=== PATIENT | female | born 1960 | race Caucasian/White ===

== ENCOUNTER → 2017-01-30 | Outpatient (CLI) | payer OTHER ==
[~2017-01-30] MED LIST: ASPI81TA85 PO; BILB150C PO; BIOT800T2 PO; BIOTIN; CRANBERRY FRUIT PO; FISH100035 PO; FLEC10TA PO; GLIP-162 PO; INSULANT SC; LISI-542 PO; MAGN250T2 PO; METO25TA2 PO; PLAV75TA38 PO; POTA595T8 PO; PROP20TA PO; REPA2TA PO; SIMV20TA2 PO; VIT D 2000 PO; VITA-122 PO; VITA10002 PO; [UNRECOGNIZED DRUG - OTHER] PO
[2017-01-30 20:33] LABS: ANION GAP 7 MEQ/L (8-16); BLOOD UREA NITROGEN 14 MG/DL (7-18); CALCIUM LEVEL 9.6 MG/DL (8.5-10.1); CARBON DIOXIDE LEVEL 29 MEQ/L (21-32); CHLORIDE LEVEL 100 MEQ/L (98-107); CHOLESTEROL LEVEL 193 MG/DL (<200); CREATININE FOR GFR 0.67 MG/DL (0.55-1.02); GLOMERULAR FILTRATION RATE > 60.0 (>51); GLUCOSE, FASTING 363 MG/DL (70-105); POTASSIUM SERUM 4.1 MEQ/L (3.5-5.1); SODIUM LEVEL 136 MEQ/L (136-145); TRIGLYCERIDES LEVEL 256 MG/DL (<150)
== END ==
LOC: M ADAMS 16:57
PROVIDERS: ATTEND Internal Medicine Cardiovascular Disease
DX: E78.5 Hyperlipidemia, unspecified (principal); I10 Essential (primary) hypertension; E11.9 Type 2 diabetes mellitus without complications

== ENCOUNTER 2018-06-28 07:56 | Emergency (ER) | payer OTHER ==
[2018-06-28 09:37] LABS: BASO # 0.1 10^3/uL (0.0-0.2); BASO % 0.4 % (0.0-1.0); EOS # 0.1 10^3/uL (0.0-0.50); EOS % 0.8 % (0.0-3.0); HEMATOCRIT 38.4 % (36.0-47.0); HEMOGLOBIN 13.1 g/dl (12.0-15.5); IMMATURE GRANULOCYTE % 0.5 % (0-3.0); LYMPH # 2.7 10^3/uL (1.5-4.5); LYMPH % 20.4 % (24.0-44.0); MEAN CORPUSCULAR HEMOGLOBIN 30.7 pg (27.0-33.0); MEAN CORPUSCULAR HGB CONC 34.1 g/dl (32.0-36.5); MEAN CORPUSCULAR VOLUME 89.9 fl (80.0-96.0); MONO # 0.8 10^3/uL (0.0-0.8); NEUTROPHILS # 9.4 10^3/uL (1.8-7.7); NEUTROPHILS % 71.9 % (36.0-66.0); PLATELET COUNT, AUTOMATED 329 10^3/uL (150-450); RED BLOOD COUNT 4.27 10^6/uL (4.00-5.40); RED CELL DISTRIBUTION WIDTH 12.6 % (11.5-14.5)
[2018-06-28 10:06] LABS: ANION GAP 7 MEQ/L (8-16); BLOOD UREA NITROGEN 13 MG/DL (7-18); CALCIUM LEVEL 9.5 MG/DL (8.8-10.2); CARBON DIOXIDE LEVEL 25 MEQ/L (21-32); CHLORIDE LEVEL 107 MEQ/L (98-107); CREATININE FOR GFR 0.57 MG/DL (0.55-1.30); GLOMERULAR FILTRATION RATE > 60.0 (>45); GLUCOSE, FASTING 214 MG/DL (70-100); POTASSIUM SERUM 4.7 MEQ/L (3.5-5.1); SODIUM LEVEL 139 MEQ/L (136-145)
[2018-06-28] MEDS ORDERED: ISOVUE-370 76% 100ML VIAL (Q9967) As Ordered (10:13)
[2018-06-28 10:41] LABS: BEDSIDE GLUCOSE 209 MG/DL (80-115)
== END 2018-06-28 13:30 | disposition home or self-care (01) ==
LOC: M ED 07:56
DX: S50.811A Abrasion of right forearm, initial encounter (principal); R07.81 Pleurodynia; R11.10 Vomiting, unspecified; V43.52XA Car driver injured in collision with other type car in traffic accident, initial encounter; Y92.410 Unspecified street and highway as the place of occurrence of the external cause; E11.9 Type 2 diabetes mellitus without complications; E78.9 Disorder of lipoprotein metabolism, unspecified; Z79.899 Other long term (current) drug therapy; Z79.4 Long term (current) use of insulin
CPT/HCPCS: Q9967

== ENCOUNTER → 2019-04-10 | Outpatient (REF) | payer OTHER ==
[~2019-04-10] MED LIST changes: -FISH100035 PO; +FISH7.5C PO; -MAGN250T2 PO; +MAGN250T7 PO; +NOVOINJ3 SUBQ; +PLAV1TAB2 PO; -PLAV75TA38 PO; +PRAV20TA2 PO; -REPA2TA PO; +REPA2TAB5 PO
[2019-04-10 14:36] LABS: CHOLESTEROL RISK RATIO 3.777 (<5)
[2019-04-10 15:46] LABS: CREATININE, URINE 90.6 MG/DL; MALB URINE SIEMENS 10.4 MG/L; MAU/CREAT RATIO 11.4 MCG/MG (0.0-30.0)
== END ==
LOC: M LABDRAW1 14:05
PROVIDERS: ATTEND Nurse Practitioner Family
DX: E78.2 Mixed hyperlipidemia (principal); E11.65 Type 2 diabetes mellitus with hyperglycemia

== ENCOUNTER 2019-08-29 11:13 | Inpatient (IN) | payer OTHER ==
[~2019-08-29] VITALS: Ht 157.5 cm; Wt 90.0 kg
[~2019-08-29 11:13] MED LIST changes: +CYAN100049 PO; +NOVOINJ3 SC; -NOVOINJ3 SUBQ; -VITA10002 PO
--- NOTE | 2019-08-29 11:54 | REP ---
CT brain without contrast: History: Trauma. Comparison CT study is from June 28, 2018. CT findings: Digital preliminary lateral account receivable clerk view is unremarkable. The bony calvarium is intact on axial CT images. No skull fracture is appreciated. There is a right parietal scalp hematoma. Visualized paranasal sinuses are clear. No intraorbital abnormality is seen. On soft tissue window settings, turcios-white differentiation pattern is seen to be intact. There is no evidence of intracranial hemorrhage. No mass, extra-axial fluid collection, midline shift or contusion is seen. Impression: Right parietal scalp hematoma. No skull fracture or intracranial injury. Electronically Signed by Roni Painter MD 08/29/2019 01:43 P
--- NOTE | 2019-08-29 12:09 | REP ---
REASON: Chest pain. COMPARISON: Multiple, the latest 02/06/2016. The technique utilized in obtaining the radiograph has magnified the cardiac silhouette and accentuated the interstitial markings. There is cardiomegaly accentuated by technique status quo. Dual chamber biopolar pacemaker device with AICD status quo. No significant change in appearance of the lung vital. No acute patchy parenchymal opacities or pleural effusions have developed. The osseous structures are stable and intact. IMPRESSION: No evidence of acute cardiopulmonary disease. Findings as described above. Electronically Signed by Ranjan Purvis DO 08/29/2019 02:03 P
[2019-08-29 12:53] LABS: BASO # 0.1 10^3/uL (0.0-0.2); BASO % 0.7 % (0.0-1.0); EOS # 0.2 10^3/uL (0.0-0.5); EOS % 2.1 % (0.0-3.0); HEMATOCRIT 38.7 % (36.0-47.0); HEMOGLOBIN 13.2 g/dl (12.0-15.5); LYMPH # 2.8 10^3/uL (1.5-5.0); LYMPH % 29.1 % (24.0-44.0); MEAN CORPUSCULAR HEMOGLOBIN 31.8 pg (27.0-33.0); MEAN CORPUSCULAR HGB CONC 34.1 g/dl (32.0-36.5); MEAN CORPUSCULAR VOLUME 93.3 fl (80.0-96.0); MONO # 0.8 10^3/uL (0.0-0.8); NEUTROPHILS # 5.6 10^3/uL (1.5-8.5); NEUTROPHILS % 59.4 % (36.0-66.0); PLATELET COUNT, AUTOMATED 306 10^3/uL (150-450); RED BLOOD COUNT 4.15 10^6/uL (4.00-5.40); WHITE BLOOD COUNT 9.5 10^3/uL (4.0-10.0)
[2019-08-29 13:09] LABS: INR 1.02; PROTHROMBIN TIME 13.1 SECONDS (11.8-14.0)
[2019-08-29 13:24] LABS: ALBUMIN 3.5 GM/DL (3.2-5.2); ALT/SGPT 30 U/L (12-78); BILIRUBIN,DIRECT 0.1 MG/DL (0.0-0.2); BILIRUBIN,TOTAL 0.4 MG/DL (0.2-1.0); BLOOD UREA NITROGEN 11 MG/DL (7-18); CALCIUM LEVEL 9.7 MG/DL (8.8-10.2); CARBON DIOXIDE LEVEL 26 MEQ/L (21-32); CHLORIDE LEVEL 107 MEQ/L (98-107); CK-MB VALUE MASS 1.7 NG/ML (<3.6); CPK CREATINE PHOSPHOKINASE 90 U/L (26-192); CREATININE FOR GFR 0.58 MG/DL (0.55-1.30); GLOMERULAR FILTRATION RATE > 60.0 (>45); GLUCOSE, FASTING 129 MG/DL (70-100); LIPASE 108 U/L (73-393); MB/CK RELATIVE INDEX 1.89 (< OR =4); NT-PRO BNP 136 PG/ML (<125); POTASSIUM SERUM 4.3 MEQ/L (3.5-5.1); SODIUM LEVEL 140 MEQ/L (136-145); TOTAL PROTEIN 7.8 GM/DL (6.4-8.2); TROPONIN I 0.13 NG/ML (< 0.10)
[2019-08-29] MEDS ORDERED: CYAN100050 PO (13:34)
[2019-08-29] MEDS ORDERED: PROP20TA PO (13:34)
[2019-08-29] MEDS ORDERED: HM P99TA PO (13:34)
[2019-08-29] MEDS ORDERED: CRAN400C PO (13:34)
[2019-08-29] MEDS ORDERED: MAGN400T PO (13:34)
[2019-08-29] MEDS ORDERED: CHOL50002 PO (13:34)
[2019-08-29] MEDS ORDERED: ACET-908 PO (13:35)
--- NOTE | 2019-08-29 17:38 | HPE ---
DATE OF ADMISSION: 08/29/2019 SHEET METAL OPERATOR: Dr. Lira PRIMARY CARE PROVIDER: Dr. Tatiana Leon ATTENDING PHYSICIAN: Hospitalist group. CHIEF COMPLAINT: Syncope with a slightly elevated troponin. HISTORY: Rosmery Bautista is a 59-year-old followed by [facility]. She had a syncopal episode today at [employer] in [place]. She was ready to order her lunch at the counter, when she found herself on the floor. She said she felt vaguely unwell for just a moment before. She does not recall having her implantable cardioverter defibrillator (ICD) discharge. Her says she had been very tired recently, and the patient thinks that "her stomach has be off" for the last day, but there have been no respiratory illnesses, fevers, nausea, vomiting, or diarrhea. PAST MEDICAL HISTORY: 1. Ventricular tachycardia. She has an ICD. 2. History of hypertensive heart disease. 3. Hyperlipidemia. 4. Chronic kidney disease. 5. Coronary artery disease with history of myocardial infarction. 6. Type 2 diabetes. SOCIAL HISTORY: Does not smoke or drink any alcohol. She is . REVIEW OF SYSTEMS: As above. No epistaxis, rectal bleeding, urinary bleeding, headache, history of seizure disorder. MEDICATIONS: - Lantus insulins 60 units daily - sliding scale insulin based upon blood sugars - magnesium oxide 400 mg at bedtime - pravastatin 20 mg at bedtime - propranolol 20 mg twice a day - vitamin D 5000 units at bedtime - B12 at 1000 mcg daily - potassium gluconate 99 mg daily ALLERGIES: None known, but per Dr. Ortiz in the emergency room the patient has an unspecified problem taking AMIODARONE in the past. PHYSICAL EXAMINATION: Alert, oriented. No distress. VITAL SIGNS: Per flow sheet. Pupils equal, round, and reactive to light. Tympanic membranes (TMs) and oropharynx benign. NECK: No masses. LUNGS: Clear. HEART: Regular rate and rhythm. No murmur. ABDOMEN: Soft, nontender. No masses. No peripheral edema. Normal strength int he arms and legs. NEUROLOGIC: Nonfocal. LABORATORY DATA: CBC, BMP unremarkable. Magnesium 2.0, potassium 4.4. Troponin 0.13. A CT scan of the head showed a right parietal scalp hematoma. Chest x-ray showed no active disease. IMPRESSION: Syncope. 1. The patient will be admitted to a telemetry bed. Dr. Lira would like her observed on telemetry for 24 hours. Going to interrogate the ICD later today. 2. Slightly elevated troponin. Repeat troponin has been ordered. 3. Diabetes. Sliding-scale insulin for the next day. 4. Hypertension. Continue her current dose of propranolol. 5. Hyperlipidemia. Continue pravastatin.
[2019-08-29 20:20] VITALS: BP 150/72
[2019-08-29] MEDS: PROPRANOLOL 20 MG TAB PO SCH (22:04)
[2019-08-29] MEDS: MAGNESIUM OXIDE 400 MG TAB (MAG-OX) PO SCH (22:04)
[2019-08-29] MEDS: PRAVASTATIN 20 MG TAB PO SCH (22:05)
[2019-08-29] MEDS: ACETAMINOPHEN 325 MG TAB PO PRN (22:09)
[2019-08-29 22:47] LABS: CK-MB VALUE MASS 1.4 NG/ML (<3.6); MB/CK RELATIVE INDEX 1.77 (< OR =4); TROPONIN I 0.32 NG/ML (< 0.10)
[2019-08-30] VITALS: BP 118/58
[2019-08-30 04:00] VITALS: BP 122/66
[2019-08-30 04:13] LABS: CK-MB VALUE MASS 1.4 NG/ML (<3.6); MB/CK RELATIVE INDEX 0.82 (< OR =4); TROPONIN I 0.29 NG/ML (< 0.10)
[2019-08-30] MEDS ORDERED: GLUCAGON FOR INJ 1 MG VIAL (J1610) SC PRN (05:00)
[2019-08-30] MEDS ORDERED: DEXTROSE 50% 50 ML SYRINGE IV PRN (05:00)
[2019-08-30] MEDS ORDERED: GLUCOSE 4 GM CHEW TABLET PO PRN (05:00)
[2019-08-30 06:34] LABS: HEMATOCRIT 38.7 % (36.0-47.0); HEMOGLOBIN 12.9 g/dl (12.0-15.5); MEAN CORPUSCULAR HEMOGLOBIN 30.8 pg (27.0-33.0); MEAN CORPUSCULAR HGB CONC 33.3 g/dl (32.0-36.5); MEAN CORPUSCULAR VOLUME 92.4 fl (80.0-96.0); PLATELET COUNT, AUTOMATED 315 10^3/uL (150-450); RED BLOOD COUNT 4.19 10^6/uL (4.00-5.40); WHITE BLOOD COUNT 8.8 10^3/uL (4.0-10.0)
--- NOTE | 2019-08-30 06:49 | CR ---
DATE OF CONSULTATION: 08/29/2019 INDICATIONS: Syncope. REFERRING PHYSICIAN: Dr. Miller HISTORY OF PRESENT ILLNESS: Mrs. Bautista is seen in the emergency room after she suffered a syncopal event at work. She tells me that she was standing and the next thing she remembers that somebody was talking to her as she is lying on the floor. She did not have any warning symptoms. Besides feeling a little more tired than usual in the last few weeks, she has not been sick lately and there have not been any unusual events. On arrival of ambulance her vital signs were very stable. She was alert and the EKG tracings from ambulance do not indicate any arrhythmias. The patient is known to me. She does have a history of idiopathic ventricular tachycardia that was initially diagnosed in 2006. She has been seen by Dr. Medina in [facility] for electrophysiology. She initially underwent a cardiac catheterization that was normal and had a defibrillator inserted in April 2007. She was initially treated with sotalol and flecainide, neither one of which was successful. 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 She had two ablations by Dr. Medina that ultimately turned out not to be overly successful, but the second one in 2016 was complicated by pericardial tamponade. Since her initial presentation, she has had a total four episodes of ventricular tachycardia (VT)/ventricular fibrillation that led to implantable cardioverter defibrillator (ICD) discharges. PAST MEDICAL HISTORY: 1. Idiopathic ventricular tachycardia as above. The last cardiac catheterization was in 2006 and revealed normal coronary anatomy. Last EP study was in December 2015 that led to pericardial tamponade. Last nuclear stress was in January 2016 and revealed left ventricular ejection fraction (LVEF) 70% and normal perfusion. 2. Type 2 diabetes. 3. Dyslipidemia. 4. Obesity. 5. 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 It eventually subsided spontaneously after the medication was discontinued. SURGICAL HISTORY: 1. Positive for breast reduction. 2. sections. 3. ICD implant. FAMILY HISTORY: Negative for ventricular tachycardia or arrhythmias in first-degree relatives. It is also negative for early coronary artery disease. SOCIAL HISTORY: The patient is . She does not smoke. She does not drink alcohol. OUTPATIENT MEDICATIONS: - insulin - potassium 10 mEq daily - pravastatin 20 mg daily - propranolol 20 mg twice a day - vitamins ALLERGIES: She reports allergies to: 1. FLECAINIDE that caused VT. 2. AMIODARONE that caused hyperthyroidism. 3. SIMVASTATIN and ATORVASTATIN caused myalgias. REVIEW OF SYSTEMS: She denies any recent fever, chills, nausea, vomiting, diarrhea or chest pain. The rest as per HPI or negative. PHYSICAL EXAMINATION: Mrs. Bautista is a middle-aged white female who appears approximately her age. She is obese, but appears to be in no distress, comfortably lying on the ER stretcher. The last set of vital signs reveal a blood pressure of 137/76, heart rate in high 50s and low 60s. She is afebrile. Saturation 93% on room air. Weight is documented at 98 kg. Jugular venous pressure (JVP) is not elevated. No carotid bruits. No goiter. Lungs are clear. Good air movement. Heart exam reveals regular rhythm. I do not appreciate any gallop, rub or murmur. There is an ICD in the left subclavian pocket. Abdomen is soft, nontender. No rebound tenderness. Extremities are free of edema. Good peripheral pulses and neurologically she is intact. There is an ecchymosis on her scalp after the impact from the fall earlier today. LABORATORY: Basic metabolic panel is normal. TSH is 2.0. N terminal proBNP is 136. Troponin I is 0.13. CK and CK-MB are normal. CBC is also normal. INR is 1.0. Chest x-ray reveals no obvious cardiomegaly or congestive heart failure. There is a defibrillator with appropriate position of the leads. She had a head CT that revealed no subdural or intracranial hemorrhage. There was a right parietal scalp hematoma. ECG reveals sinus rhythm without ST-segment shift. ASSESSMENT/PLAN: Mrs. Bautista is a 59-year-old lady who has known idiopathic ventricular tachycardia/fibrillation. Over years she had two ablations without obvious success. Over years she also was on numerous antiarrhythmics that were ultimately discontinued due to side effects. Sotalol was ineffective and was poorly tolerated. Flecainide was causing more frequent episodes of VT and PVCs and caused dizziness. Amiodarone caused hyperthyroidism. Consequently, she has been maintained only on propranolol 20 mg twice a day. Her typical heart rate is in 50s, so it is difficult to increase the dose further. Today, she suffered a syncopal event. I interrogated her ICD in the emergency room and it revealed that she indeed had a very fast ventricular tachycardia with ventricular rate approximately 250 beats per minute that was terminated by single ICD shock. It was triggered by PVC. She also had one additional episode yesterday that was short-lived and self terminated. It turns out that she actually was seen by Dr. Medina last week and no problems were found and no medication changes were made. I do have to say that in this situation it is challenging to come up with a good solution for antiarrhythmics if needed. I do think it is appropriate to monitor the patient in the hospital for at least 48-72 hours. We will obtain serial cardiac enzymes. I will obtain an echocardiogram to make sure that her left ventricular systolic function remains normal even though it very likely it does. If she has recurrent arrhythmias then the choices will be between mexiletine and possibly an attempt for yet another ablation. I will contact Dr. Medina in this regard on Sunday. In the interim, Dr. Christensen covers our service over the weekend and the patient was signed off to him. Edited 09/01/2019 @ 0848 [facility] cc: Tobias Medina MD
[2019-08-30 07:02] LABS: BLOOD UREA NITROGEN 12 MG/DL (7-18); CALCIUM LEVEL 9.1 MG/DL (8.8-10.2); CARBON DIOXIDE LEVEL 27 MEQ/L (21-32); CHLORIDE LEVEL 106 MEQ/L (98-107); CK-MB VALUE MASS 1.3 NG/ML (<3.6); CPK CREATINE PHOSPHOKINASE 68 U/L (26-192); CREATININE FOR GFR 0.62 MG/DL (0.55-1.30); GLOMERULAR FILTRATION RATE > 60.0 (>45); GLUCOSE, FASTING 158 MG/DL (70-100); MB/CK RELATIVE INDEX 1.91 (< OR =4); SODIUM LEVEL 137 MEQ/L (136-145); TROPONIN I 0.29 NG/ML (< 0.10)
[2019-08-30 08:00] VITALS: BP 135/60
--- NOTE | 2019-08-30 08:58 | IPNPDOC ---
Text Note Date of Service The patient was seen on 08/30/19. NOTE Subjective: Patient seen and examined at bedside. No acute overnight events reported. No new medical complaints. Denies chest pain, shortness of breath, palpitations, headaches. Objective: General: NAD, lying comfortably in bed HEENT: NC/AT, EOMI Lungs: CTA B/L HEART: +S1S2, RRR Abd: soft, NT, +BS Ext: no edema A/P: 59 yo female for syncopal episode with AICD discharge, with PMHx idiopathic VT failing anti-arrhythmic therapy/ablations, HTN, HLD, CKD, CAD/[place], DM. # syncope - asymptomatic bradycardia overnight - continue telemetry monitoring - PT/OT - echo pending #arrhythmia - propranolol - ICD interrogation noted - follow as per cardiology - assistance appreciated #HTN - propranolol #HLD - prvastatin #CKD #CAD/[place] #DM - ISS while inpatient #DVT prophylaxis VS,Fishbone, I+O VS, Fishbone, I+O Laboratory Tests 08/29/19 12:21 Red Blood Count 4.15, Mean Corpuscular Volume 93.3, Mean Corpuscular Hemoglobin 31.8, Mean Corpuscular Hemoglobin Concent 34.1, Red Cell Distribution Width 12.6, Neutrophils (%) (Auto) 59.4, Lymphocytes (%) (Auto) 29.1, Monocytes (%) (Auto) 8.0 H, Eosinophils (%) (Auto) 2.1, Basophils (%) (Auto) 0.7, Neutrophils # (Auto) 5.6, Lymphocytes # (Auto) 2.8, Monocytes # (Auto) 0.8, Eosinophils # (Auto) 0.2, Basophils # (Auto) 0.1 08/30/19 06:19 Red Blood Count 4.19, Mean Corpuscular Volume 92.4, Mean Corpuscular Hemoglobin 30.8, Mean Corpuscular Hemoglobin Concent 33.3, Red Cell Distribution Width 12.9, Calcium Level 9.1, Total Creatine Kinase 68 Vital Signs Date Time Temp Pulse Resp B/P (MAP) Pulse Ox O2 Delivery O2 Flow Rate FiO2 08/30/19 04:00 98.0 60 18 122/66 (84) 97 08/29/19 13:00 Room Air I&O- Last 24 Hours up to 6 AM 08/30/19 06:00 Intake Total 0 ml Output Total 600 ml Balance -600 ml PAWAN OCHOA MD Aug 30, 2019 07:26
[2019-08-30] MEDS: HumaLOG INSULIN (NovoLOG) PER UNIT SC SCH ×4 (09:06→21:53)
[2019-08-30] MEDS: PROPRANOLOL 20 MG TAB PO SCH ×2 (09:06→20:02)
[2019-08-30] MEDS: ACETAMINOPHEN 325 MG TAB PO PRN ×2 (09:16→20:03)
[2019-08-30 11:34] LABS: MB/CK RELATIVE INDEX 1.43 (< OR =4); TROPONIN I 0.29 NG/ML (< 0.10)
[2019-08-30 12:00] VITALS: BP 124/61
[2019-08-30 16:00] VITALS: BP 130/65
[2019-08-30 20:00] VITALS: BP 170/90
[2019-08-30] MEDS: MAGNESIUM OXIDE 400 MG TAB (MAG-OX) PO SCH (20:02)
[2019-08-30] MEDS: PRAVASTATIN 20 MG TAB PO SCH (20:02)
[2019-08-30] MEDS ORDERED: LEVEMIR (INSULIN DETEMIR) 1 UNITS/0.01ML SC SCH (21:00)
[2019-08-31] VITALS (7 sets, daily range): BP systolic 127–145; BP diastolic 60–69
[2019-08-31] MEDS: ACETAMINOPHEN 325 MG TAB PO PRN (06:24)
[2019-08-31 06:53] LABS: HEMATOCRIT 39.8 % (36.0-47.0); HEMOGLOBIN 13.3 g/dl (12.0-15.5); MEAN CORPUSCULAR HGB CONC 33.4 g/dl (32.0-36.5); MEAN CORPUSCULAR VOLUME 92.8 fl (80.0-96.0); PLATELET COUNT, AUTOMATED 297 10^3/uL (150-450); RED BLOOD COUNT 4.29 10^6/uL (4.00-5.40); WHITE BLOOD COUNT 7.5 10^3/uL (4.0-10.0)
[2019-08-31 07:14] LABS: BLOOD UREA NITROGEN 14 MG/DL (7-18); CALCIUM LEVEL 9.1 MG/DL (8.8-10.2); CARBON DIOXIDE LEVEL 27 MEQ/L (21-32); CHLORIDE LEVEL 105 MEQ/L (98-107); CREATININE FOR GFR 0.61 MG/DL (0.55-1.30); GLOMERULAR FILTRATION RATE > 60.0 (>45); GLUCOSE, FASTING 205 MG/DL (70-100); POTASSIUM SERUM 4.4 MEQ/L (3.5-5.1); SODIUM LEVEL 137 MEQ/L (136-145)
--- NOTE | 2019-08-31 07:59 | ECGEPIP ---
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
--- NOTE | 2019-08-31 08:15 | ECHO ---
DATE OF PROCEDURE: 08/30/2019 AGE: 59 GENDER: Female REFERRING PHYSICIAN: Dr. Lira. HEIGHT: 62 inches. WEIGHT: 216 pounds. BODY SURFACE AREA: 1.97 sq m. INPATIENT: PCU Room 3223 INDICATION: Syncopal spell. Ventricular tachycardia. MEASUREMENTS: 2D MEASUREMENTS: RV - 3.4 cm LV- 3.7 cm Septum - 1.1 cm Posterior wall - 1.1 cm Aortic root - 3.1 cm LA - 3.6 cm LVEF - 75% DOPPLER MEASUREMENTS: AV - 1.4 m/s LVOT - 1.2 m/s LVOT diameter - 1.9 cm MV-E: 89 A: 84 EA ratio 1.1 Early mitral deacceleration time - 201 ms E-prime - 10 A-prime - 10 E/E prime ratio - 8.4 PV - 0.8 m/s Pulmonary artery acceleration time - 141 ms PASP - 20 mmHg IVC - 1.5 cm COMMENTS: Sinus bradycardia without intraventricular conduction disturbance. Technically difficult study in light of the patient's body habitus but diagnostically useful information was still obtained. M-mode and two-dimensional echocardiography was performed with pulsed, continuous wave, color flow and tissue Doppler studies. Normal left ventricular size, wall thickness and hyperkinetic wall motion. Normal left atrial size and Doppler assessment of LV diastolic function and estimated mean left atrial pressure. Normal right heart chamber sizes and motion and estimated pulmonary arterial pressure. Normal IVC size and collapse against an elevated central venous pressure. Normal appearing and functioning valvular structures. Normal aortic root size. Pacing lead could be visualized traversing right heart structures but no separate intracardiac mass. Small posterior pericardial effusion measuring 4 mm without cardiac chamber compression.
--- NOTE | 2019-08-31 08:48 | IPN ---
DATE: 08/30/2019 CARDIOLOGY PROGRESS NOTE Covering for Dr. Lira. SUBJECTIVE: The patient continues to have a headache related to her blunt head trauma with her collapse yesterday. Has been up in the room to the bathroom without problem. Remains free of any chest discomfort, shortness of breath or any awareness of her heart action. OBJECTIVE: Pleasant, obese, late middle-aged woman sat comfortably on the edge of her bed. No pallor or cyanosis. Heart rate 68 beats per minute and regular, blood pressure 130/65 sitting, respiratory rate 18 with oxygen (O2) saturation 94% on room air. Afebrile. Her weight is stable. Normal oral moisture. Trachea midline. Neck veins not elevated. Normal chest expansion and air entry over both lung vital with no abnormal pulmonary adventitious sounds. Apical impulse not palpable. Heart sounds were normal with no audible gallop or murmur.. No dependent edema. 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 Only rare low grade ventricular ectopic activity since her bout of ventricular tachycardia yesterday. LABORATORY DATA: Blood work today shows a normal hemoglobin, white blood cell count and platelet count. Electrolytes are in balance with BUN 12, creatinine 0.6, fasting glucose slightly elevated today at 158. Serial CPKs were all negative. Troponin I levels have increased from 0.13 to a maximum of 0.29 and last study was 0.27 this evening. ECHOCARDIOGRAM: I reviewed this personally earlier today, and it confirms normal cardiac chamber sizes, wall thickness and function. No evidence of pulmonary hypertension, valvular dysfunction. Her implantable cardioverter defibrillator (ICD) lead was visible traversing right heart structures, and she has a small persistent pericardial effusion. I suspect since her complicated ablation procedure 2014 with perforation and tamponade at that time. IMPRESSION/PLAN: 1. Lone ventricular tachycardia/ICD in situ: As mentioned, reviewing her history, there does not appear to be any clear-cut trigger for her rhythm disturbance. Specifically denies use of caffeine, alcohol or illicit substances or decongestants. Chemistry confirms electrolyte balance and thyroid screen was normal. Her echocardiogram/Doppler study performed earlier today shows no evidence of structural or functional cardiac abnormality that would predispose to her rhythm disturbance. 2. Abnormal EKG: Patient reports no symptoms to suggest myocardial ischemia but is diabetic. Tracing taken in the emergency room yesterday is chiefly reflective of her body habitus. Isolated PVC showing R on T phenomenon: Fortunately without triggering recurrent complex ventricular ectopy. As mentioned serial troponin I levels have been consistently in an indeterminate range. Currently on low-dose propranolol beta danette, statin and aspirin therapy. It may be prudent to consider repeat evaluation of her coronary status. A followup EKG will be obtained in the morning. 3. Pericardial effusion (unspecified): Suspected to be a residual phenomenon related to her prior ablation procedure complication (cardiac perforation and cardiac tamponade). Certainly has no current symptoms of pericarditis, no pericardial rub or elevated neck veins to suggest a hemodynamic disturbance related to pericardial disease. No special measures would be deemed necessary. 4. Obesity: Associated with diabetes mellitus and lipid disorder but no systemic or pulmonary hypertension. No history to suggest obstructive sleep apnea. Weight reduction however would be advised to prevent these problems in the future 5. Insulin-dependent diabetes mellitus: Despite her obesity, her echocardiogram today did not show any evidence of right heart chamber enlargement, pulmonary hypertension or elevated central venous pressure. Elevated blood sugar this morning at 158, currently on a consistent carbohydrate diet with insulin coverage At this point, the patient remains on combination low-dose propranolol and magnesium. From discussing her case with Dr. Lira, I believe he will be considering further electrophysiological ablation in light of the monomorphic nature of her documented ventricular tachyarrhythmia. I will continue to monitor her until he returns Sunday. MAY
--- NOTE | 2019-08-31 09:04 | ECGEPIP ---
[facility] Test Date: 2019-08-31 Pat Name: ELSI JOHNSON Department: Room: [place] [address] Gender: Female Subscription Agent: MEEK : 1960 Requested By: Darin Christensen Order Number: [id number] Reading MD: Darin Christensen Measurements Intervals [place] Rate: 60 P: 44 IN: 189 QRS: -7 QRSD: 90 T: -1 QT: 418 QTc: 418 Interpretive Statements Normal sinus rhythm Leftward axis Somewhat low precordial voltage with incomplete Right bundle branch block and slow R-wave progression; body habitus versus pulmonary disease No ectopic activity or evidence of atrial pacing compared with tracing 08/29/19. Electronically Signed on 08-31-2019 9:03:42 EDT by Darin Christensen
[2019-08-31] MEDS: PROPRANOLOL 20 MG TAB PO SCH ×2 (09:07→21:14)
[2019-08-31] MEDS: HumaLOG INSULIN (NovoLOG) PER UNIT SC SCH ×4 (09:08→21:13)
--- NOTE | 2019-08-31 10:07 | IPNPDOC ---
Text Note Date of Service The patient was seen on 08/31/19. NOTE Subjective: Patient seen and examined at bedside. No acute overnight events reported. No new medical complaints. Denies chest pain, shortness of breath, palpitations, headaches. Objective: General: NAD, lying comfortably in bed HEENT: NC/AT, EOMI Lungs: CTA B/L HEART: +S1S2, RRR Abd: soft, NT, +BS Ext: no edema A/P: 59 yo female for syncopal episode with AICD discharge, with PMHx idiopathic VT failing anti-arrhythmic therapy/ablations, HTN, HLD, CKD, CAD/[place], DM. # syncope - secondary to arrhythmia - no further events - continue telemetry monitoring - PT/OT - echo completed #arrhythmia - propranolol - ICD interrogation noted - follow as per cardiology - assistance appreciated #HTN - propranolol #HLD - prvastatin #CKD #CAD/[place] #DM - continue ISS #DVT prophylaxis VS,Fishbone, I+O VS, Fishbone, I+O Laboratory Tests 08/31/19 06:20 Red Blood Count 4.29, Mean Corpuscular Volume 92.8, Mean Corpuscular Hemoglobin 31.0, Mean Corpuscular Hemoglobin Concent 33.4, Red Cell Distribution Width 12.8, Calcium Level 9.1 Vital Signs Date Time Temp Pulse Resp B/P (MAP) Pulse Ox O2 Delivery O2 Flow Rate FiO2 08/31/19 09:07 61 134/64 08/31/19 08:00 97.0 20 95 08/29/19 13:00 Room Air I&O- Last 24 Hours up to 6 AM 08/31/19 06:00 Intake Total 960 ml Output Total 550 ml Balance 410 ml PAWAN OCHOA MD Aug 31, 2019 10:07
[2019-08-31] MEDS ORDERED: SLF 3 ML SYR IV PRN (16:00)
[2019-08-31] MEDS ORDERED: ACETAMINOPHEN TAB 650MG DOSE (2X325MG) PO PRN (16:01)
[2019-08-31] MEDS ORDERED: LEVEMIR (INSULIN DETEMIR) 1 UNITS/0.01ML SC SCH (21:00)
[2019-08-31] MEDS: SLF 3 ML SYR IV SCH (21:14)
[2019-08-31] MEDS: MAGNESIUM OXIDE 400 MG TAB (MAG-OX) PO SCH (21:14)
[2019-08-31] MEDS: PRAVASTATIN 20 MG TAB PO SCH (21:14)
[2019-09-01 04:00] VITALS: BP 141/67
[2019-09-01] MEDS: SLF 3 ML SYR IV SCH ×2 (06:20→13:56)
--- NOTE | 2019-09-01 06:40 | IPN ---
CARDIOLOGY PROGRESS NOTE COVERING FOR DR. PINZON DATE OF SERVICE: 08/31/2019 SUBJECTIVE: Again, other than her headache related to her blunt head trauma falling at the time of her malignant ventricular arrhythmia, the patient has remained free of cardiovascular complaint. She has been ambulating short distances without problem. OBJECTIVE: Pleasant, obese, late middle-aged woman lying comfortably flat. Heart rate 60 BPM and regular, blood pressure 145/69, respiratory rate 18, O2 saturation 95%. Afebrile. No pallor or icterus. No cyanosis. Normal oral moisture. Comfortable respiratory pattern supine. LABORATORY DATA: Complete blood count today remains normal. Chemistry also confirms electrolyte balance with normal renal function. Unfortunately, fasting blood sugar this morning was 205 on her current dietary measures and SMC sliding scale insulin which is different than the patient's home scale. 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 IMPRESSION/PLAN: 1. Lone ventricular tachyarrhythmia/ICD in situ: Again, remains free of any rhythm disturbance on telemetry. We have emphasized the importance of avoiding exogenous irritants such as caffeine, alcohol and [id number] medications. We have also encouraged her efforts to lose weight as this may reduce her risk of future rhythm disturbances. Remains on low-dose propranolol. Dr. Pinzon plans to discuss possible further ablation procedure. 2. Remains free of symptoms to suggest myocardial ischemia: Followup EKG today shows no repolarization change. Continues on low-dose beta danette, statin and aspirin therapy. I do believe it would be prudent to at least noninvasively reassess her coronary prognosis in light of her coronary risk factors and indeterminate troponin I. 3. Pericardial effusion (unspecified): Remains free of any symptom or sign of complication related to this phenomenon suspected to stem from her last ablation procedure. 4. Obesity: Especially with her diabetes mellitus, we have encouraged her to consider a low-carbohydrate diet to help prevent further diabetic complications as well as development of systemic or pulmonary hypertension. 5. Insulin-dependent diabetes mellitus: Currently suboptimal control. The patient claims due to a difference sliding scale insulins here in the hospital. Again, I have emphasized the importance of avoiding carbohydrates and increasing her regular aerobic exercise. Dr. Pinzon will be resuming her cardiology care as of tomorrow morning.
[2019-09-01 08:00] VITALS: BP 148/68
--- NOTE | 2019-09-01 08:58 | IPN ---
DATE: 09/01/2019 Mrs. Bautista had uneventful weekend. There was not any recurrence of arrhythmias and she remained in stone cold sinus rhythm. There was also minimal ventricular ectopy. Vital signs: Blood pressure 148/68, heart rate has been mostly in 50s to high 60s. She is afebrile. Saturation 96% on room air. She weighs 90 kg. She is alert and oriented appropriate. Her jugular venous pulse is not up. Lungs are clear. Heart: Exam reveals regular rhythm. I do not appreciate any gallop, rub or murmur. Abdomen is soft, nontender. There is no peripheral edema. LABORATORY: Normal CBC. Cardiac enzymes have been flat. Her troponin has been marginally elevated around 0.27-0.29 without appreciable trend. No evolution on ECG. ASSESSMENT/PLAN: Mrs. Bautista is a 59-year-old female who has had high blood pressure, dyslipidemia and type 2 diabetes, but no coronary artery disease. She has idiopathic ventricular fibrillation. She presented with syncope and ICD interrogation revealed presence of very fast ventricular tachycardia that was successfully treated by defibrillation. Unfortunately, she is relatively bradycardia at her baseline, so I do not believe that we can increase the dose of propranolol. She also failed flecainide, which cause side effects. Sotalol was ineffective and amiodarone causes, hyperthyroidism. At this point I will contact her rock crushing machine operator in [place] to provide some guidance on further management. I would prefer if the patient undergoes yet another angiography and then attempt for ablation again, even though she had to ablations in the past, if rock crushing machine operator does not give me any new recommendations we will probably discharge her home.
[2019-09-01 09:25] VITALS: BP 148/68
[2019-09-01] MEDS: HumaLOG INSULIN (NovoLOG) PER UNIT SC SCH ×2 (09:25→12:56)
[2019-09-01] MEDS: PROPRANOLOL 20 MG TAB PO SCH (09:25)
[2019-09-01 10:00] VITALS: BP 146/88
[2019-09-01 12:00] VITALS: BP 146/88
--- NOTE | 2019-09-01 12:39 | DS.PDOC ---
Discharge Summary General Date of Admission Aug 30, 2019 at 07:27 Date of Discharge 09/01/19 Specialist/Consultants Involve: Shaw Lira MD Discharge Summary PROCEDURES PERFORMED DURING STAY: [None]. ADMITTING DIAGNOSES: # idiopathic VT SECONDARY DIAGNOSES: # Idiopathic ventricular tachycardia # Type 2 diabetes. # Dyslipidemia. # Obesity. 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 Resolved on d/c of medication. COMPLICATIONS/CHIEF COMPLAINT: Syncope. HPI/Hospital Course: 59-year-old female followed by [facility], presented for syncopal episode. She was ready to order her lunch at the counter, when she found herself on the floor. She said she felt vaguely unwell for just a moment before. She does not recall having her implantable cardioverter defibrillator (ICD) discharge. Her says she had been very tired recently, and the patient t hinks that "her stomach has be off" for the last day, but there have been no respiratory illnesses, fevers, nausea, vomiting, or diarrhea. On arrival of ambulance her vital signs were very stable. She was alert and the EKG tracings from ambulance do not indicate any arrhythmias. She does have a history of idiopathic ventricular tachycardia that was initially diagnosed in 2006. She has been seen by Dr. Medina in [facility] for electrophysiology. She initially underwent a cardiac catheterization that was normal and had a defibrillator inserted in April 2007. She was initially treated with sotalol and flecainide, neither one of which was successful. 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 She had two ablations by Dr. Medina that ultimately turned out not to be overly successful, but the second one in 2016 was complicated by pericardial tamponade. Since her initial presentation, she has had a total four episodes of ventricular tachycardia (VT)/ventricular fibrillation that led to implantable cardioverter defibrillator (ICD) discharges. Her ICD was interrogated in the emergency room and it revealed VT at 250 beats per minute that was terminated by single ICD shock. It was triggered by PVC. She also had one additional episode the day prior that was short-lived and self terminated. She was seen by Dr. Medina one week prior, and no problems were found and no medication changes were made. Patient was admitted and monitored over the weekend on telemetry with no acute findings. An echocardiogram was obtained, with no new acute pathology. On follow up with cardiology including her EPS physician, recommendations were for discharge home with outpatient follow up. DISCHARGE MEDICATIONS: Please see below. ALLERGIES: Please see below. PHYSICAL EXAMINATION ON DISCHARGE: VITAL SIGNS: Please see below. General: NAD, lying comfortably in bed HEENT: NC/AT, EOMI Chest: CTA B/L, AICD in left sub-clavian pocket HEART: +S1S2, RRR Abd: soft, NT, +BS Ext: no edema LABORATORY DATA: Please see below. ACTIVITY: [As tolerated]. DISPOSITION: Discharge home. DISCHARGE INSTRUCTIONS: 1. Follow up with PCP in 3-5 days 2. Follow up with Dr. Medina as scheduled DISCHARGE CONDITION: [Stable]. TIME SPENT ON DISCHARGE: 35 minutes. Vital Signs/I&Os Vital Signs Date Time Temp Pulse Resp B/P (MAP) Pulse Ox O2 Delivery O2 Flow Rate FiO2 09/01/19 09:25 64 148/68 09/01/19 08:00 97.7 17 96 08/29/19 13:00 Room Air I&O- Last 24 Hours up to 6 AM 09/01/19 06:00 Intake Total 708 ml Output Total 750 ml Balance -42 ml Laboratory Data Labs 24H Laboratory Tests 2 08/31/19 16:31: Bedside Glucose (Misc Panel) 300H 08/31/19 21:10: Bedside Glucose (Misc Panel) 313H 09/01/19 07:41: Bedside Glucose (Misc Panel) 215H 09/01/19 11:49: Bedside Glucose (Misc Panel) 256H FSBS Laboratory Tests Test 08/31/19 16:31 08/31/19 21:10 09/01/19 07:41 09/01/19 11:49 Range/Units Bedside Glucose (Misc Panel) 300 313 215 256 80-115 MG/DL Discharge Medications Scheduled Cholecalciferol (Vitamin D3) (Vitamin D3) 5,000 Unit Capsule, 5,000 UNIT PO QHS, (Reported) Cranberry (Cranberry) 400 Mg Capsule, 400 MG PO QHS, (Reported) Cyanocobalamin (Vitamin B-12) (Vitamin B-12) 1,000 Mcg Tablet, 1,000 MCG PO QHS, (Reported) Insulin Aspart (Novolog Flexpen) 100 Unit/Ml Inj, 1 DOSE SC AC, (Reported) PER SLIDING SCALE Insulin Glargine (Lantus) 1 Units/0.01 Ml Susp, 60 UNITS SC QHS, (Reported) Magnesium Oxide (Magnesium Oxide) 400 Mg Tablet, 400 MG PO QHS, (Reported) Potassium Gluconate (Potassium) 99 Mg Tablet, 595 MG PO QHS, (Reported) Pravastatin Sodium (Pravastatin Sodium) 20 Mg Tab, 20 MG PO QHS, (Reported) Propranolol HCl (Propranolol HCl) 20 Mg Tablet, 20 MG PO BID, (Reported) Scheduled PRN Acetaminophen (Acetaminophen) 325 Mg Tablet, 650 MG PO Q4H PRN for HEADACHE, (Reported) Allergies Coded Allergies: No Known Allergies (Verified , 11/10/11) PAWAN OCHOA MD Sep 01, 2019 12:39
[2019-09-01] MEDS ORDERED: LEVEMIR (INSULIN DETEMIR) 1 UNITS/0.01ML SC SCH (21:00)
== END 2019-09-01 14:20 | disposition home or self-care (01) | DRG 201 ==
LOC: M ED 11:14 → M ED INP 11:15 → M PCU 20:15 → OBSVTOIN 08-30 07:27
PROVIDERS: ADMIT Family Medicine; ATTEND Internal Medicine
DX: I47.2 Ventricular tachycardia (principal); J90 Pleural effusion, not elsewhere classified; I13.0 Hypertensive heart and chronic kidney disease with heart failure and stage 1 through stage 4 chronic kidney disease, or unspecified chronic kidney disease; E11.9 Type 2 diabetes mellitus without complications; E78.5 Hyperlipidemia, unspecified; E66.9 Obesity, unspecified; E21.2 Other hyperparathyroidism; Z79.899 Other long term (current) drug therapy; Z79.4 Long term (current) use of insulin; I25.10 Atherosclerotic heart disease of native coronary artery without angina pectoris; I25.2 Old myocardial infarction; Z88.8 Allergy status to other drugs, medicaments and biological substances; N18.9 Chronic kidney disease, unspecified

== ENCOUNTER 2019-10-20 13:34 | Emergency (ER) | payer OTHER ==
[~2019-10-20] VITALS: Ht 157.5 cm; Wt 86.4 kg
[~2019-10-20 13:34] MED LIST changes: +ACET-908 PO; +CHOL50002 PO; +CRAN400C PO; +CYAN100050 PO; +HM P99TA PO; +MAGN400T3 PO
[2019-10-20 14:23] LABS: BASO # 0.1 10^3/uL (0.0-0.2); BASO % 0.5 % (0.0-1.0); EOS # 0.2 10^3/uL (0.0-0.5); EOS % 1.8 % (0.0-3.0); HEMATOCRIT 40.8 % (36.0-47.0); HEMOGLOBIN 13.8 g/dl (12.0-15.5); LYMPH # 3.7 10^3/uL (1.5-5.0); LYMPH % 33.3 % (24.0-44.0); MEAN CORPUSCULAR HEMOGLOBIN 31.2 pg (27.0-33.0); MEAN CORPUSCULAR HGB CONC 33.8 g/dl (32.0-36.5); MEAN CORPUSCULAR VOLUME 92.1 fl (80.0-96.0); MONO # 0.8 10^3/uL (0.0-0.8); MONO % 7.4 % (0.0-5.0); NEUTROPHILS # 6.3 10^3/uL (1.5-8.5); NEUTROPHILS % 56.8 % (36.0-66.0); PLATELET COUNT, AUTOMATED 356 10^3/uL (150-450); RED BLOOD COUNT 4.43 10^6/uL (4.00-5.40)
--- NOTE | 2019-10-20 14:34 | REP ---
Clinical: Chest pain . Comparison: 08/29/2019 . Findings: The mediastinum and cardiac silhouette are stable and within normal limits for portable technique. Dual lead pacemaker in satisfactory position. The lung vital are clear without acute consolidation, effusion, or pneumothorax. Skeletal structures are intact. Impression: No acute cardiopulmonary process appreciated. Electronically Signed by Ammon Serna MD 10/20/2019 02:26 P
[2019-10-20 14:41] LABS: INR 1.02; PROTHROMBIN TIME 13.1 SECONDS (11.8-14.0)
[2019-10-20 14:59] LABS: BLOOD UREA NITROGEN 12 MG/DL (7-18); CALCIUM LEVEL 10.1 MG/DL (8.8-10.2); CARBON DIOXIDE LEVEL 28 MEQ/L (21-32); CHLORIDE LEVEL 105 MEQ/L (98-107); CPK CREATINE PHOSPHOKINASE 63 U/L (26-192); CREATININE FOR GFR 0.62 MG/DL (0.55-1.30); GLOMERULAR FILTRATION RATE > 60.0 (>45); GLUCOSE, FASTING 161 MG/DL (70-100); MB/CK RELATIVE INDEX 1.59 (< OR =4); POTASSIUM SERUM 4.3 MEQ/L (3.5-5.1); SODIUM LEVEL 140 MEQ/L (136-145); TROPONIN I 0.31 NG/ML (< 0.10)
--- NOTE | 2019-10-20 19:57 | ECGEPIP ---
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
[2019-10-20 20:14] VITALS: BP 167/80
== END 2019-10-20 20:14 | disposition short-term general hospital (02) ==
LOC: M ED 13:34
DX: I47.2 Ventricular tachycardia (principal); E11.9 Type 2 diabetes mellitus without complications; I25.10 Atherosclerotic heart disease of native coronary artery without angina pectoris; Z79.899 Other long term (current) drug therapy; Z79.4 Long term (current) use of insulin

== ENCOUNTER 2019-11-09 12:13 | Inpatient (IN) | payer OTHER ==
[~2019-11-09] VITALS: Ht 160 cm; Wt 80.1 kg
[2019-11-09] MEDS ORDERED: RANO500T PO (12:27)
--- NOTE | 2019-11-09 13:23 | REP ---
Portable chest x-ray: Sitting AP view. History: Chest pain. Comparison study: October 20 1019. Findings: Monitoring electrodes overlie the chest. A multi lead pacemaker is seen in the right heart via the left side as before. The heart is not enlarged. Lungs are well inflated and clear. The pleural angles are sharp. There are mild degenerative changes in the thoracic spine. Impression: Pacemaker in place. No acute disease. Electronically Signed by Roni Painter MD 11/09/2019 01:15 P
[2019-11-09 13:29] LABS: BASO # 0.1 10^3/uL (0.0-0.2); BASO % 0.6 % (0.0-1.0); EOS # 0.1 10^3/uL (0.0-0.5); EOS % 1.4 % (0.0-3.0); HEMATOCRIT 43.3 % (36.0-47.0); HEMOGLOBIN 14.4 g/dl (12.0-15.5); LYMPH # 2.1 10^3/uL (1.5-5.0); LYMPH % 23.3 % (24.0-44.0); MEAN CORPUSCULAR HEMOGLOBIN 30.4 pg (27.0-33.0); MEAN CORPUSCULAR HGB CONC 33.3 g/dl (32.0-36.5); MEAN CORPUSCULAR VOLUME 91.5 fl (80.0-96.0); MONO # 0.5 10^3/uL (0.0-0.8); MONO % 5.2 % (0.0-5.0); NEUTROPHILS # 6.3 10^3/uL (1.5-8.5); NEUTROPHILS % 68.9 % (36.0-66.0); PLATELET COUNT, AUTOMATED 388 10^3/uL (150-450); RED BLOOD COUNT 4.73 10^6/uL (4.00-5.40); WHITE BLOOD COUNT 9.1 10^3/uL (4.0-10.0)
[2019-11-09 14:07] LABS: BLOOD UREA NITROGEN 12 MG/DL (7-18); CALCIUM LEVEL 10.1 MG/DL (8.8-10.2); CARBON DIOXIDE LEVEL 26 MEQ/L (21-32); CHLORIDE LEVEL 106 MEQ/L (98-107); CK-MB VALUE MASS < 1.0 NG/ML (<3.6); CPK CREATINE PHOSPHOKINASE 66 U/L (26-192); CREATININE FOR GFR 0.73 MG/DL (0.55-1.30); GLOMERULAR FILTRATION RATE > 60.0 (>45); GLUCOSE, FASTING 192 MG/DL (70-100); MAGNESIUM LEVEL 1.9 MG/DL (1.8-2.4); MB/CK RELATIVE INDEX 1.52 (< OR =4); POTASSIUM SERUM 4.9 MEQ/L (3.5-5.1); SODIUM LEVEL 140 MEQ/L (136-145); TROPONIN I 0.28 NG/ML (< 0.10)
[2019-11-09] MEDS ORDERED: GLUCAGON FOR INJ 1 MG VIAL (J1610) SC PRN (17:15)
[2019-11-09] MEDS ORDERED: GLUCOSE 4 GM CHEW TABLET PO PRN (17:15)
[2019-11-09] MEDS ORDERED: DEXTROSE 50% 50 ML SYRINGE IV PRN (17:15)
[2019-11-09] MEDS ORDERED: MAALOX 30 ML SUSP *UDC PO PRN (17:15)
[2019-11-09] MEDS ORDERED: ACETAMINOPHEN TAB 650MG DOSE (2X325MG) PO PRN (17:15)
[2019-11-09] MEDS ORDERED: MOM 30ML SUSPENSION UDC PO PRN (17:15)
--- NOTE | 2019-11-09 17:17 | HPEPDOC ---
General Date of Admission 11/09/19 Date of Service: Nov 09, 2019 Primary Care Physician: Tatiana Leon Chief Complaint The patient is a 59-year-old white female admitted with a reason for visit of Edvin Hsu. Source: Patient Exam Limitations: No limitations Timing/Duration: Other (not applicable) Severity: Other (none) Associated Symptoms: Other (none) History of Present Illness 59 years old white female with past medical history of ventricular tachycardia status post ICD hypertensive heart disease, hyperlipidemia, chronic kidney disease, coronary artery disease with [place], type 2 diabetes mellitus Heidi woken up when her defibrillator went off while patient was sleeping. Patient denies any chest pain, shortness of breath, nausea, vomiting, etc. Patient was seen by her automobile parker Dr. Lira and transfers has been arranged to transfer patient to [facility] in [place], but bed is not available and patient will be transferred there tomorrow, and the meantime, admitting for observation to PCU Home Medications Scheduled Insulin Aspart (Novolog Flexpen) 100 Unit/Ml Inj, 1 DOSE SC ACHS, (Reported) PER SLIDING SCALE Insulin Glargine (Lantus) 1 Units/0.01 Ml Susp, 60 UNITS SC QHS, (Reported) Potassium Gluconate (Potassium) 99 Mg Tablet, 99 MG PO QHS, (Reported) Pravastatin Sodium (Pravastatin Sodium) 20 Mg Tab, 20 MG PO QHS, (Reported) Propranolol HCl (Propranolol HCl) 20 Mg Tablet, 20 MG PO BID, (Reported) Ranolazine (Ranolazine ER) 500 Mg Tab.er.12h, 500 MG PO QHS, (Reported) Scheduled PRN Acetaminophen (Acetaminophen) 325 Mg Tablet, 650 MG PO Q4H PRN for HEADACHE, (Reported) Allergies Coded Allergies: No Known Allergies (Verified , 11/10/11) Past Medical History Medical History Ventricular tachycardia status post ICD, history of hypertensive heart disease, hyperlipidemia, chronic kidney disease, CAD with AL and type 2 diabetes Surgical History AICD placement Family History Significant Family History: No pertinent family hx Social History * Smoker: Denies Alcohol: Denies Drugs: denies A-FIB/CHADSVASC A-FIB History Current/History of A-Fib/PAF?: No Review of Systems Constitutional: Denies: Chills, Fever, Malaise, Night Sweats, Weakness, Fatigue, Weight Loss, Lethargy, Other Eyes: Denies: Pain, Vision change, Conjunctivae inflammation, Eyelid inf lammation, Redness, Other ENT: Denies: Head Aches, Ear Pain, Dysphagia, Sinus Congestion, Post Nasal Drip, Sore Throat, Epistaxis, Other Symptoms Skin: Denies: Rash, Lesions, Jaundice, Bruising, Itching, Dry, Breakdown, Nail Changes, Other Pulmonary: Denies: Dyspnea, Cough, Pleuritic Chest Pain, Other Symptoms Cardiovascular: Denies: Chest Pain, Palpitations, Orthopnea, Paroxysmal Noc. Dyspnea, Edema, Lt Headedness, Other Symptoms Gastrointestinal: Denies: Nausea, Vomiting, Abdominal Pain, Diarrhea, Constipation, Melena, Hematochezia, Other Symptoms Genitourinary: Denies: Dysuria, Frequency, Incontinence, Hematuria, Retention, Other Symptoms Hematologic: Denies: Bruising, Bleeding Excessively, Petecchia, Purpura, Enlarged Lymph Nodes, Other Hematologic Endocrine: Denies: Polydipsia, Polyphagia, Polyuria, Heat Intolerance, Cold Intolerance, Other Endocrine Sx Musculoskeletal: Denies: Neck Pain, Back Pain, Shoulder Pain, Arm Pain, Hand Pain, Leg Pain, Foot Pain, Joint Pain, Muscle Pain, Spasms, Other Symptoms Neurological: Denies: Weakness, Numbness, Incoordination, Change in speech, Confusion, Seizures, Other Symptoms Psych: Denies: Mood Normal, Anxiety, Depression, Memory Issues, Thoughts of Self Harm, Anger, Thoughts of Harming Other, Other Psych Physical Examination General Exam: Positive: Alert, Cooperative Eye Exam: Positive: PERRLA, Conjunctiva & lids normal ENT Exam: Positive: Atraumatic, Mucous membr. moist/pink Neck Exam: Positive: Supple Chest Exam: Positive: Clear to auscultation, Normal air movement Heart Exam: Positive: Rate Normal, Normal S1, Normal S2 Abdomen Exam: Positive: Normal bowel sounds, Soft Extremity Exam: Positive: Normal pulses Skin Exam: Positive: Nl turgor and temperature Neuro Exam: Positive: Strength at 5/5 X4 ext, Cranial Nerves 3-12 NL Psych Exam: Positive: Mood NL, Oriented x 3 Vital Signs Vital Signs Date Time Temp Pulse Resp B/P (MAP) Pulse Ox O2 Delivery O2 Flow Rate FiO2 11/09/19 15:00 65 20 146/67 (93) 96 Room Air 11/09/19 12:18 98.4 Laboratory Data Labs 24H Laboratory Tests 2 11/09/19 13:20: Immature Granulocyte % (Auto) 0.6, Neutrophils (%) (Auto) 68.9H, Lymphocytes (%) (Auto) 23.3L, Monocytes (%) (Auto) 5.2H, Eosinophils (%) (Auto) 1.4, Basophils (%) (Auto) 0.6, Neutrophils # (Auto) 6.3, Lymphocytes # (Auto) 2.1, Monocytes # (Auto) 0.5, Eosinophils # (Auto) 0.1, Basophils # (Auto) 0.1, Nucleated Red Bl ood Cells % (auto) 0.0, Anion Gap 8, Glomerular Filtration Rate > 60.0, Calcium Level 10.1, Magnesium Level 1.9, Total Creatine Kinase 66, Creatine Kinase MB < 1.0, Creatine Kinase MB Relative Index 1.52, Troponin I 0.28H, Thyroid Stimulating Hormone (TSH) 1.130 CBC/BMP Laboratory Tests 11/09/19 13:20 Problems (1) Ventricular tachycardia Status: Acute Problem Text: 59 years old, obese, white female with past medical history of multiple medical problems including V. tach status post AICD, history of hyp ertensive heart disease, history of hyperlipidemia, history of chronic kidney disease, history of CAD with AL and history of type 2 diabetes mellitus, presented with firing of defibrillator today. Patient denies any symptoms of chest pain, shortness of breath, nausea, vomiting, etc. Patient was seen by Dr. Lira, and patient in for episode of V. tach since October 28 today with one shock. Dr. Lira tried to transfer patient to [facility] in [place], but bed is not available to patient will be transferred tomorrow under Dr. Medina's service in a.m. Admit patient to PCU with telemetry Serial troponins, first troponin is slightly elevated with 0.28 CBC, CMP, as initially within normal limits EKG shows possible right ventricular conduction delay, moderate voltage criteria for LVH nd nonspecific ST-T changes, which most likely are old in nature Cardiology consult-Patient was seen by Dr. Lira in ED, transfer arranged Continue all home medications DVT prophylaxis with Lovenox Consistent carbohydrate diet Rest with bathroom privileges Transferred to [facility] in a.m. (2) CAD (coronary artery disease) Status: Chronic Problem Text: Continue home meds (3) CKD (chronic kidney disease) Status: Chronic Problem Text: Stable Continue home meds (4) Hyperlipemia Status: Chronic Problem Text: Continue home meds (5) Diabetes mellitus Status: Chronic Problem Text: Fingerstick blood sugar every before meals and at bedtime with coverage Continue home meds including basal insulin Plan / VTE VTE Prophylaxis Ordered?: Yes CHARLENE NUNEZ MD Nov 09, 2019 17:17
[2019-11-09] MEDS: HumaLOG INSULIN (NovoLOG) PER UNIT SC SCH (18:10)
[2019-11-09 20:00] VITALS: BP 141/68
[2019-11-09] MEDS: DOCUSATE SODIUM 100 MG CAP PO SCH (20:27)
[2019-11-09] MEDS: PROPRANOLOL 20 MG TAB PO SCH (20:27)
[2019-11-09] MEDS ORDERED: LEVEMIR (INSULIN DETEMIR) 1 UNITS/0.01ML SC SCH (21:00)
[2019-11-09] MEDS ORDERED: HumaLOG INSULIN (NovoLOG) PER UNIT SC SCH (21:00)
[2019-11-09] MEDS ORDERED: RANOLAZINE 500 MG ER TAB PO SCH (21:00)
[2019-11-09] MEDS ORDERED: PRAVASTATIN 20 MG TAB PO SCH (21:00)
[2019-11-09] MEDS ORDERED: ENOXAPARIN 40 MG/0.4 ML SYRINGE (J1650) SC SCH (21:00)
[2019-11-10] VITALS: BP 128/66
--- NOTE | 2019-11-10 00:52 | ECGEPIP ---
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
[2019-11-10 04:00] VITALS: BP 125/65
[2019-11-10 04:29] LABS: HEMATOCRIT 38.7 % (36.0-47.0); HEMOGLOBIN 13.2 g/dl (12.0-15.5); MEAN CORPUSCULAR HEMOGLOBIN 30.9 pg (27.0-33.0); MEAN CORPUSCULAR HGB CONC 34.1 g/dl (32.0-36.5); MEAN CORPUSCULAR VOLUME 90.6 fl (80.0-96.0); PLATELET COUNT, AUTOMATED 347 10^3/uL (150-450); RED BLOOD COUNT 4.27 10^6/uL (4.00-5.40); WHITE BLOOD COUNT 8.7 10^3/uL (4.0-10.0)
[2019-11-10 04:57] LABS: ALBUMIN 3.3 GM/DL (3.2-5.2); ALT/SGPT 19 U/L (12-78); BILIRUBIN,TOTAL 0.4 MG/DL (0.2-1.0); BLOOD UREA NITROGEN 13 MG/DL (7-18); CALCIUM LEVEL 9.1 MG/DL (8.8-10.2); CARBON DIOXIDE LEVEL 27 MEQ/L (21-32); CHLORIDE LEVEL 105 MEQ/L (98-107); GLOMERULAR FILTRATION RATE > 60.0 (>45); GLUCOSE, FASTING 206 MG/DL (70-100); POTASSIUM SERUM 3.9 MEQ/L (3.5-5.1); SODIUM LEVEL 140 MEQ/L (136-145); TOTAL PROTEIN 7.8 GM/DL (6.4-8.2); TROPONIN I 0.25 NG/ML (< 0.10)
[2019-11-10 08:00] VITALS: BP 115/65
[2019-11-10] MEDS: HumaLOG INSULIN (NovoLOG) PER UNIT SC SCH ×2 (08:46→12:49)
[2019-11-10 08:47] VITALS: BP 115/65
[2019-11-10] MEDS: DOCUSATE SODIUM 100 MG CAP PO SCH (08:47)
[2019-11-10] MEDS: PROPRANOLOL 20 MG TAB PO SCH (08:47)
[2019-11-10 12:00] VITALS: BP 146/68
--- NOTE | 2019-11-10 12:20 | DS.PDOC ---
Discharge Summary General Date of Admission Nov 09, 2019 at 17:01 Date of Discharge 11/10/19 Discharge Summary PROCEDURES PERFORMED DURING STAY: None. ADMITTING DIAGNOSES: 1. Ventricular tachycardia . DISCHARGE DIAGNOSES: 1. Ventricular tachycardia. COMPLICATIONS/CHIEF COMPLAINT: Ventricular Tachycardia. HISTORY OF PRESENT ILLNESS: 59 years old white female with past medical history of ventricular tachycardia status post ICD hypertensive heart disease, hyperlipidemia, chronic kidney disease, coronary artery disease with [place], type 2 diabetes mellitus Heidi woken up when her defibrillator went off while patient was sleeping. Patient denies any chest pain, shortness of breath, nausea, vomiting, etc. Patient was seen by her home care liaison Dr. Lira and transfers has been arranged to transfer patient to [facility] in [place], but bed is not available and patient will be transferred there tomorrow, and the meantime, admitting for observation to PCU. HOSPITAL COURSE: Patient was admitted overnight to PCU for observation as patient is awaiting transfer to [place]. Patient remained asymptomatic overnight. Discussed with Dr. Lira this morning was the bed is available. Patient will be transferred to [place] today. DISCHARGE MEDICATIONS: Please see below. ALLERGIES: Please see below. PHYSICAL EXAMINATION ON DISCHARGE: VITAL SIGNS: Please see below. GENERAL: Within normal limits HEENT: Paralyzed ocular muscles intact NECK: Supple CARDIOVASCULAR EXAMINATION: S1, S2, regular RESPIRATORY EXAMINATION: Clear to A&P ABDOMINAL EXAMINATION: , Soft, nontender, bowel sound present EXTREMITIES: Clubbing, cyanosis, edema SKIN: Within normal limits NEUROLOGICAL EXAMINATION: . No focal motor sensory deficit PSYCHIATRIC EXAMINATION: Normal LABORATORY DATA: Please see below. IMAGING: None PROGNOSIS: Good ACTIVITY: As tolerated. DIET: As tolerated DISCHARGE PLAN: Discharge to tertiary care center facility DISPOSITION: [place] . DISCHARGE INSTRUCTIONS: 1. As per discharge instruction. ITEMS TO FOLLOWUP ON ON OUTPATIENT: 1. None. DISCHARGE CONDITION: Stable. TIME SPENT ON DISCHARGE: 38 minutes. Vital Signs/I&Os Vital Signs Date Time Temp Pulse Resp B/P (MAP) Pulse Ox O2 Delivery O2 Flow Rate FiO2 11/10/19 08:47 63 115/65 11/10/19 08:00 98.6 16 94 Room Air I&O- Last 24 Hours up to 6 AM0 11/10/19 06:00 Intake Total 360 ml Output Total 650 ml Balance -290 ml Laboratory Data Labs 24H Laboratory Tests 2 11/09/19 13:20: Immature Granulocyte % (Auto) 0.6, Neutrophils (%) (Auto) 68.9H, Lymphocytes (%) (Auto) 23.3L, Monocytes (%) (Auto) 5.2H, Eosinophils (%) (Auto) 1.4, Basophils (%) (Auto) 0.6, Neutrophils # (Auto) 6.3, Lymphocytes # (Auto) 2.1, Monocytes # (Auto) 0.5, Eosinophils # (Auto) 0.1, Basophils # (Auto) 0.1, Nucleated Red Blood Cells % (auto) 0.0, Anion Gap 8, Glomerular Filtration Rate > 60.0, Calcium Level 10.1, Magnesium Level 1.9, Total Creatine Kinase 66, Creatine Kinase MB < 1.0, Creatine Kinase MB Relative Index 1.52, Troponin I 0.28H, Thyroid Stimulating Hormone (TSH) 1.130 11/09/19 17:48: Bedside Glucose (Misc Panel) 184H 11/09/19 20:30: Bedside Glucose (Misc Panel) 211H 11/09/19 22:55: Troponin I 0.30H 11/10/19 04:16: Nucleated Red Blood Cells % (auto) 0.0, Anion Gap 8, Glomerular Filtration Rate > 60.0, Calcium Level 9.1, Total Bilirubin 0.4, Aspartate Amino Transf (AST/SGOT) 13, Alanine Aminotransferase (ALT/SGPT) 19, Alkaline Phosphatase 68, Troponin I 0.25H, Total Protein 7.8, Albumin 3.3, Albumin/Globulin Ratio 0.73L 11/10/19 08:21: Bedside Glucose (Misc Panel) 140H CBC/BMP Laboratory Tests 11/09/19 13:20 11/10/19 04:16 FSBS Laboratory Tests Test 11/09/19 17:48 11/09/19 20:30 11/10/19 08:21 Range/Units Bedside Glucose (Misc Panel) 184 211 140 80-115 MG/DL Discharge Medications Scheduled Insulin Aspart (Novolog Flexpen) 100 Unit/Ml Inj, 1 DOSE SC ACHS, (Reported) PER SLIDING SCALE Insulin Glargine (Lantus) 1 Units/0.01 Ml Susp, 60 UNITS SC QHS, (Reported) Potassium Gluconate (Potassium) 99 Mg Tablet, 99 MG PO QHS, (Reported) Pravastatin Sodium (Pravastatin Sodium) 20 Mg Tab, 20 MG PO QHS, (Reported) Propranolol HCl (Propranolol HCl) 20 Mg Tablet, 20 MG PO BID, (Reported) Ranolazine (Ranolazine ER) 500 Mg Tab.er.12h, 500 MG PO QHS, (Reported) Scheduled PRN Acetaminophen (Acetaminophen) 325 Mg Tablet, 650 MG PO Q4H PRN for HEADACHE, (Reported) Allergies Coded Allergies: No Known Allergies (Verified , 11/10/11) CHARLENE NUNEZ MD Nov 10, 2019 12:20
[2019-11-10 16:00] VITALS: BP 140/70
== END 2019-11-10 16:41 | disposition short-term general hospital (02) | DRG 201 ==
LOC: EDBD 12:13 → M ED 12:13 → M ED INP 17:01 → ENRESERV 19:08 → M ICU 19:58
PROVIDERS: ADMIT Internal Medicine; ATTEND Internal Medicine
DX: I47.2 Ventricular tachycardia (principal); I13.0 Hypertensive heart and chronic kidney disease with heart failure and stage 1 through stage 4 chronic kidney disease, or unspecified chronic kidney disease; N18.9 Chronic kidney disease, unspecified; I25.10 Atherosclerotic heart disease of native coronary artery without angina pectoris; I25.2 Old myocardial infarction; E11.9 Type 2 diabetes mellitus without complications; Z79.4 Long term (current) use of insulin; Z79.899 Other long term (current) drug therapy; E78.5 Hyperlipidemia, unspecified

== ENCOUNTER → 2019-11-17 | Outpatient (CLI) | payer OTHER ==
[~2019-11-17] MED LIST changes: +RANO500T PO
== END ==
LOC: M LAB 14:27
PROVIDERS: ATTEND Internal Medicine Cardiovascular Disease
DX: Z13.6 Encounter for screening for cardiovascular disorders (principal)

== ENCOUNTER 2020-02-27 14:37 | Inpatient (IN) | payer OTHER ==
[~2020-02-27] VITALS: Ht 160 cm; Wt 79.9 kg
[2020-02-27] MEDS ORDERED: MEXI200C PO (14:59)
[2020-02-27] MEDS ORDERED: NADO40TA PO ×2 (14:59→16:07)
[2020-02-27 15:11] LABS: BASO # 0.1 10^3/uL (0.0-0.2); BASO % 0.7 % (0.0-1.0); EOS # 0.2 10^3/uL (0.0-0.5); EOS % 2.5 % (0.0-3.0); HEMATOCRIT 43.7 % (36.0-47.0); HEMOGLOBIN 14.6 g/dl (12.0-15.5); LYMPH # 3.2 10^3/uL (1.5-5.0); LYMPH % 35.9 % (24.0-44.0); MEAN CORPUSCULAR HGB CONC 33.4 g/dl (32.0-36.5); MEAN CORPUSCULAR VOLUME 89.9 fl (80.0-96.0); MONO # 0.7 10^3/uL (0.0-0.8); MONO % 7.6 % (0.0-5.0); NEUTROPHILS # 4.8 10^3/uL (1.5-8.5); NEUTROPHILS % 53.1 % (36.0-66.0); PLATELET COUNT, AUTOMATED 328 10^3/uL (150-450); RED BLOOD COUNT 4.86 10^6/uL (4.00-5.40)
[2020-02-27 15:25] LABS: INR 1.16; PROTHROMBIN TIME 14.5 SECONDS (11.8-14.0)
[2020-02-27 15:26] LABS: PARTIAL THROMBOPLASTIN TIME 28.9 SECONDS (25.0-38.4)
[2020-02-27] MEDS ORDERED: AMIODARONE HCL 360 MG in IV 1 EA IV SCH ×2 (15:30→16:15)
[2020-02-27] MEDS ORDERED: AMIODARONE HCL 150 MG in IV 1 EA IV ONE (15:30)
[2020-02-27 15:46] LABS: ALBUMIN 3.7 GM/DL (3.2-5.2); ALT/SGPT 54 U/L (12-78); BILIRUBIN,DIRECT 0.1 MG/DL (0.0-0.2); BILIRUBIN,TOTAL 0.3 MG/DL (0.2-1.0); BLOOD UREA NITROGEN 12 MG/DL (7-18); CARBON DIOXIDE LEVEL 28 MEQ/L (21-32); CHLORIDE LEVEL 107 MEQ/L (98-107); CK-MB VALUE MASS < 1.0 NG/ML (<3.6); CPK CREATINE PHOSPHOKINASE 59 U/L (26-192); CREATININE FOR GFR 0.69 MG/DL (0.55-1.30); FREE T4 1.08 NG/DL (0.76-1.46); GLOMERULAR FILTRATION RATE > 60.0 (>45); GLUCOSE, FASTING 172 MG/DL (70-100); MB/CK RELATIVE INDEX 1.69 (< OR =4); PHOSPHORUS LEVEL 2.5 MG/DL (2.5-4.9); POTASSIUM SERUM 4.4 MEQ/L (3.5-5.1); SODIUM LEVEL 137 MEQ/L (136-145); TOTAL PROTEIN 7.8 GM/DL (6.4-8.2); TROPONIN I 0.19 NG/ML (< 0.10)
--- NOTE | 2020-02-27 15:54 | REP ---
HISTORY: Chest pain. COMPARISON: Multiple, the latest 12/01/2019. The technique utilized in obtaining the radiograph has magnified the cardiac silhouette and accentuated the interstitial markings. The superior mediastinal structures are midline. The cardiac silhouette is unremarkable in size, shape and position. The diaphragmatic surfaces of the lungs are regular and the costophrenic angles are clear. The pulmonary vital are clear. The imaged osseous structures are intact. IMPRESSION: There is no acute cardiopulmonary disease. No change from the prior exam. Electronically Signed by Ranjan Purvis DO 02/27/2020 04:08 P
[2020-02-27] MEDS ORDERED: INSUH10VL SC (16:07)
[2020-02-27] MEDS ORDERED: NOVOINJ3 SC (16:11)
[2020-02-27] MEDS ORDERED: ACETAMINOPHEN TAB 650MG DOSE (2X325MG) PO PRN (16:15)
[2020-02-27] MEDS ORDERED: MAALOX 30 ML SUSP *UDC PO PRN (16:15)
--- NOTE | 2020-02-27 16:52 | HPEPDOC ---
General Date of Admission Feb 27, 2020 at 16:10 Date of Service: Feb 27, 2020 Primary Care Physician: Tatiana Leon Chief Complaint The patient is a 59-year-old female admitted with a reason for visit of Defibrillator Discharge Palpitations. Source: Patient Timing/Duration: Other (since yesterday) Severity: Other (, not applicable) Associated Symptoms: Other (palpitations) History of Present Illness This is a 59 years old white female with past medical history of V. tach status post AICD hypertensive heart disease, hyperlipidemia, chronic kidney disease, CAD status post RI, diabetes mellitus type 2 who was in usual state of health until yesterday when she started feeling palpitations followed by a AICD discharge and again she started feeling palpitations. She called her cardiol ogist and she was asked to come to Hospital admission for possible d ventricular tachycardia. Patient offers no other complaints such as chest pain, shortness of breath, nausea, vomiting, diarrhea. Patient was seen in [place] and all the workup has been done with undetermined etiology for her ventricular tachycardia, patient was supposed to be transferred to [facility] for further workup, but was canceled secondary to COVID pandemic. Home Medications Scheduled Insulin Aspart (Novolog Flexpen) 100 Unit/Ml Inj, 1 DOSE SC BID, (Reported) PER SLIDING SCALE, TESTS BS IN MORNING AND AT BEDTIME Insulin Aspart (Novolog Flexpen) 100 Unit/1 Ml Insuln.pen, 20 UNITS SC BID, (Reported) BEFORE LUNCH AND DINNER Insulin Glargine (Lantus) 1 Units/0.01 Ml Susp, 50 UNITS SC QHS, (Reported) Mexiletine HCl (Mexiletine HCl) 200 Mg Capsule, 200 MG PO TID, (Reported) Nadolol (Nadolol) 40 Mg Tablet, 20 MG PO DAILY, (Reported) Nadolol (Nadolol) 40 Mg Tablet, 40 MG PO QHS, (Reported) Pravastatin Sodium (Pravastatin Sodium) 20 Mg Tab, 20 MG PO QHS, (Reported) Scheduled PRN Acetaminophen (Acetaminophen) 325 Mg Tablet, 650 MG PO Q4H PRN for PAIN / FEVER, (Reported) Allergies Uncoded Allergies: muscle relaxers (Allergy, Unknown, 02/27/20) Past Medical History Medical History V. tach, status post AICD, hypertensive heart disease, hyperlipidemia, chronic kidney disease, CAD, RI, DM type II Surgical History AICD placement Social History * Smoker: Denies Alcohol: Denies Drugs: denies A-FIB/CHADSVASC A-FIB History Current/History of A-Fib/PAF?: No Review of Systems Constitutional: Denies: Chills, Fever, Malaise, Night Sweats, Weakness, Fatigue, Weight Loss, Lethargy, Other Eyes: Denies: Pain, Vision change, Conjunctivae inflammation, Eyelid inflammation, Redness, Other ENT: Denies: Head Aches, Ear Pain, Dysphagia, Sinus Congestion, Post Nasal Drip, Sore Throat, Epistaxis, Other Symptoms Pulmonary: Denies: Dyspnea, Cough, Pleuritic Chest Pain, Other Symptoms Cardiovascular: Reports: Palpitations Gastrointestinal: Denies: Nausea, Vomiting, Abdominal Pain, Diarrhea, Constipation, Melena, Hematochezia, Other Symptoms Genitourinary: Denies: Dysuria, Frequency, Incontinence, Hematuria, Retention, Other Symptoms Hematologic: Denies: Bruising, Bleeding Excessively, Petecchia, Purpura, Enlarged Lymph Nodes, Other Hematologic Endocrine: Denies: Polydipsia, Polyphagia, Polyuria, Heat Intolerance, Cold Intolerance, Other Endocrine Sx Musculoskeletal: Denies: Neck Pain, Back Pain, Shoulder Pain, Arm Pain, Hand Pain, Leg Pain, Foot Pain, Joint Pain, Muscle Pain, Spasms, Other Symptoms Neurological: Denies: Weakness, Numbness, Incoordination, Change in speech, Confusion, Seizures, Other Symptoms Psych: Denies: Mood Normal, Anxiety, Depression, Memory Issues, Thoughts of Self Harm, Anger, Thoughts of Harming Other, Other Psych Physical Examination General Exam: Positive: Alert, Cooperative Eye Exam: Positive: PERRLA, Conjunctiva & lids normal ENT Exam: Positive: Atraumatic, Mucous membr. moist/pink Neck Exam: Positive: Supple, JVD Chest Exam: Positive: Clear to auscultation, Normal air movement Heart Exam: Positive: Rate Normal, Normal S1, Normal S2 Abdomen Exam: Positive: Normal bowel sounds Extremity Exam: Positive: Normal pulses Skin Exam: Positive: Nl turgor and temperature Neuro Exam: Positive: Strength at 5/5 X4 ext, Sensation Intact, Cranial Nerves 3-12 NL Psych Exam: Positive: Mood NL, Oriented x 3 Vital Signs Vital Signs Date Time Temp Pulse Resp B/P (MAP) Pulse Ox O2 Delivery O2 Flow Rate FiO2 4/3/20 15:16 148/67 (94) 02/27/20 15:07 50 96 02/27/20 14:53 98.5 18 Room Air Laboratory Data Labs 24H Laboratory Tests 2 02/27/20 15:01: Immature Granulocyte % (Auto) 0.2, Neutrophils (%) (Auto) 53.1, Lymphocytes (%) (Auto) 35.9, Monocytes (%) (Auto) 7.6H, Eosinophils (%) (Auto) 2.5, Basophils (%) (Auto) 0.7, Neutrophils # (Auto) 4.8, Lymphocytes # (Auto) 3.2, Monocytes # (Auto) 0.7, Eosinophils # (Auto) 0.2, Basophils # (Auto) 0.1, Nucleated Red Blood Cells % (auto) 0.0, Prothrombin Time 14.5H, Prothromb Time International Ratio 1.16, Activated Partial Thromboplast Time 28.9, Anion Gap 2L, Glomerular Filtration Rate > 60.0, Calcium Level 10.0, Phosphorus Level 2.5, Magnesium Level 2.0, Total Bilirubin 0.3, Direct Bilirubin 0.1, Aspartate Amino Transf (AST/SGOT) 34, Alanine Aminotransferase (ALT/SGPT) 54, Alkaline Phosphatase 78, Total Creatine Kinase 59, Creatine Kinase MB < 1.0, Creatine Kinase MB Relative Index 1.69, Troponin I 0.19H, Total Protein 7.8, Albumin 3.7, Albumin/Globulin Ratio 0.90L, Thyroid Stimulating Hormone (TSH) 1.410, Free Thyroxine 1.08 CBC/BMP Laboratory Tests 02/27/20 15:01 Problems (1) Ventricular tachycardia Status: Acute Problem Text: Admit patient to PCU EKG shows atrial pacing LVH, old T wave changes First troponin is 0.19, other blood work is within normal range Patient already received a loading dose of amiodarone and has been started on a miodarone 1 mg/m drip Will follow patient's rhythm on telemetry Discussed with Dr. Lira on the phone Continue nadolol, but DC mexiletine Will continue all other home medications Further recommendations as per cardiology Diet 2 g sodium Activity bed rest except bathroom DVT prophylaxis with heparin (2) Defibrillator discharge Status: Acute Problem Text: As above (3) CKD (chronic kidney disease) Status: Chronic Problem Text: Stable. Creatinine 0.69 and urine 12 Monitor renal functions (4) Hyperlipemia Status: Chronic Problem Text: Continue home meds (5) CAD (coronary artery disease) Status: Chronic Problem Text: Continue home meds (6) Diabetes mellitus Status: Chronic Problem Text: Fingerstick blood sugar every before meals and at bedtime with coverage Continue basal insulin as per home dosage Plan / VTE VTE Prophylaxis Ordered?: Yes CHARLENE NUNEZ MD Feb 27, 2020 16:52
[2020-02-27] MEDS ORDERED: GLUCAGON FOR INJ 1 MG VIAL (J1610) SC PRN (17:00)
[2020-02-27] MEDS ORDERED: DEXTROSE 50% 50 ML SYRINGE IV PRN (17:00)
[2020-02-27] MEDS ORDERED: GLUCOSE 4 GM CHEW TABLET PO PRN (17:00)
[2020-02-27 17:14] VITALS: BP 142/72
[2020-02-27] MEDS: HumaLOG INSULIN (NovoLOG) PER UNIT SC SCH ×2 (17:55→20:26)
[2020-02-27 20:00] VITALS: BP 152/78
[2020-02-27] MEDS: NADOLOL 20MG TABLET PO SCH (20:25)
[2020-02-27] MEDS: PRAVASTATIN 20 MG TAB PO SCH (20:25)
[2020-02-27] MEDS: LEVEMIR (INSULIN DETEMIR) 1 UNITS/0.01ML SC SCH (20:26)
[2020-02-27] MEDS: HEPARIN SOD (PORCINE) 5000 UNITS/ML VIAL (J1644 PER 1000UNITS) SC SCH (20:27)
[2020-02-28] VITALS: BP 136/63
[2020-02-28] MEDS: AMIODARONE HCL 360 MG in IV 1 EA IV SCH ×2 (03:50→14:26)
[2020-02-28] MEDS: HumaLOG INSULIN (NovoLOG) PER UNIT SC SCH ×4 (07:30→20:00)
--- NOTE | 2020-02-28 07:32 | ECGEPIP ---
[facility] - ED Test Date: 2020-02-27 Pat Name: ELSI JOHNSON Department: Room: [facility] Gender: Female Gate Tender: Hilda JOHNSON : 1960 Requested By: JUANCARLOS Mcpherson Order Number: [id number] Reading MD: Baljit Saeed Measurements Intervals [place] Rate: 52 P: 127 ND: 194 QRS: -14 QRSD: 128 T: -10 QT: 413 QTc: 384 Interpretive Statements ELECTRONIC ATRIAL PACEMAKER Right bundle branch block MODERATE VOLTAGE CRITERIA FOR LVH, CONSIDER NORMAL VARIANT Nonspecific ST-T wave abnormalities Similar to tracing done 11-09-19 Electronically Signed on 02-28-2020 7:32:09 EDT by Baljit Saeed
[2020-02-28 08:00] VITALS: BP 132/65
--- NOTE | 2020-02-28 08:45 | IPNPDOC ---
Subjective Date Seen The patient was seen on 02/28/20. Subjective Chief Complaint/HPI Patient had no adverse events last night just had 1 episode of V. tach, about 8 beats this morning. Denies any chest pain, shortness of breath General: Denies: ROS Unobtainable, Chills, Night Sweats, Fatigue, Malaise, Normal Appetite, Other Symptoms Constitutional: Denies: Chills, Fever, Malaise, Night Sweats, Weakness, Fatigue, Weight Loss, Lethargy, Other Eyes: Denies: Pain, Vision change, Conjunctivae inflammation, Eyelid inflammation, Redness, Other ENT: Denies: Head Aches, Ear Pain, Dysphagia, Sinus Congestion, Post Nasal Drip, Sore Throat, Epistaxis, Other Symptoms Skin: Denies: Rash, Lesions, Jaundice, Bruising, Itching, Dry, Breakdown, Nail Changes, Other Pulmonary: Denies: Dyspnea, Cough, Pleuritic Chest Pain, Other Symptoms Cardiovascular: Denies: Chest Pain, Palpitations, Orthopnea, Paroxysmal Noc. Dyspnea, Edema, Lt Headedness, Other Symptoms Gastrointestinal: Denies: Nausea, Vomiting, Abdominal Pain, Diarrhea, Constipation, Melena, Hematochezia, Other Symptoms Hematologic: Denies: Bruising, Bleeding Excessively, Petecchia, Purpura, Enlarged Lymph Nodes, Other Hematologic Endocrine: Denies: Polydipsia, Polyphagia, Polyuria, Heat Intolerance, Cold Intolerance, Other Endocrine Sx Musculoskeletal: Denies: Neck Pain, Back Pain, Shoulder Pain, Arm Pain, Hand Pain, Leg Pain, Foot Pain, Joint Pain, Muscle Pain, Spasms, Other Symptoms Neurological: Denies: Weakness, Numbness, Incoordination, Change in speech, Confusion, Seizures, Other Symptoms Psych: Denies: Mood Normal, Anxiety, Depression, Memory Issues, Thoughts of Self Harm, Anger, Thoughts of Harming Other, Other Psych Objective Physical Examination General Exam: Positive: Alert, Cooperative Eye Exam: Positive: PERRLA, Conjunctiva & lids normal ENT Exam: Positive: Atraumatic, Mucous membr. moist/pink Neck Exam: Positive: Supple, JVD Chest Exam: Positive: Clear to auscultation, Normal air movement Heart Exam: Positive: Rate Normal, Normal S1, Normal S2 Abdomen Exam: Positive: Normal bowel sounds Extremity Exam: Positive: Normal pulses Skin Exam: Positive: Nl turgor and temperature Neuro Exam: Positive: Strength at 5/5 X4 ext, Sensation Intact, Cranial Nerves 3-12 NL Psych Exam: Positive: Mood NL, Oriented x 3 Assessment /Plan Problems (1) Ventricular tachycardia Status: Acute Problem Text: Continue amiodarone infusion as per orders Patient remained asymptomatic overnight, except one time and she developed palpitation and she was found to have 8 beats of V. tach on monitor Cardiology to follow patient today for further recommendations Continue nadolol, mexiletine has been DC'd Troponin is trending down to 0.16. Third troponin is pending Continue present care and and monitor rhythm (2) Defibrillator discharge Status: Acute Problem Text: Status post AICD Continue amiodarone, nadolol Further recommendations per cardiology (3) CKD (chronic kidney disease) Status: Chronic Problem Text: Stable continue home meds (4) Hyperlipemia Status: Chronic Problem Text: Continue home meds (5) CAD (coronary artery disease) Status: Chronic Problem Text: Stable continue home meds (6) Diabetes mellitus Status: Chronic Problem Text: Fingerstick blood sugar 4 times a day before meals and at bedtime with coverage Continue home insulin dosage Plan/VTE VTE Prophylaxis Ordered?: Yes VS, I&O, 24H, Fishbone Vital Signs/I&O Vital Signs Date Time Temp Pulse Resp B/P (MAP) Pulse Ox O2 Delivery O2 Flow Rate FiO2 02/28/20 08:00 97.3 53 18 132/65 (87) 96 Room Air I&O- Last 24 Hours up to 6 AM 02/28/20 06:00 Intake Total 283.3 ml Output Total 200 ml Balance 83.3 ml Laboratory Data 24H LABS Laboratory Tests 2 02/27/20 15:01: Immature Granulocyte % (Auto) 0.2, Neutrophils (%) (Auto) 53.1, Lymphocytes (%) (Auto) 35.9, Monocytes (%) (Auto) 7.6H, Eosinophils (%) (Auto) 2.5, Basophils (%) (Auto) 0.7, Neutrophils # (Auto) 4.8, Lymphocytes # (Auto) 3.2, Monocytes # (Auto) 0.7, Eosinophils # (Auto) 0.2, Basophils # (Auto) 0.1, Nucleated Red Blood Cells % (auto) 0.0, Prothrombin Time 14.5H, Prothromb Time International Ratio 1.16, Activated Partial Thromboplast Time 28.9, Anion Gap 2L, Glomerular Filtration Rate > 60.0, Calcium Level 10.0, Phosphorus Level 2.5, Magnesium Level 2.0, Total Bilirubin 0.3, Direct Bilirubin 0.1, Aspartate Amino Transf (AST/SGOT) 34, Alanine Aminotransferase (ALT/SGPT) 54, Alkaline Phosphatase 78, Total Creatine Kinase 59, Creatine Kinase MB < 1.0, Creatine Kinase MB Relative Index 1.69, Troponin I 0.19H, Total Protein 7.8, Albumin 3.7, Albumin/Globulin Ratio 0.90L, Thyroid Stimulating Hormone (TSH) 1.410, Free Thyroxine 1.08 02/27/20 17:38: Bedside Glucose (Misc Panel) 269H 02/27/20 20:01: Bedside Glucose (Misc Panel) 317H 02/27/20 21:55: Troponin I 0.16H 02/28/20 05:19: Bedside Glucose (Misc Panel) 55L 02/28/20 05:41: Bedside Glucose (Misc Panel) 110 02/28/20 07:41: Bedside Glucose (Misc Panel) 106 CBC/BMP Laboratory Tests 02/27/20 15:01 CHARLENE NUNEZ MD Feb 28, 2020 08:45
[2020-02-28] MEDS: HEPARIN SOD (PORCINE) 5000 UNITS/ML VIAL (J1644 PER 1000UNITS) SC SCH ×2 (08:49→20:10)
[2020-02-28] MEDS: NADOLOL 20MG TABLET PO SCH ×2 (08:49→20:10)
[2020-02-28] MEDS: AMIODARONE 200 MG TAB (PACERONE) PO SCH ×2 (09:00→20:10)
[2020-02-28 09:06] LABS: HEMATOCRIT 41.9 % (36.0-47.0); HEMOGLOBIN 14.2 g/dl (12.0-15.5); MEAN CORPUSCULAR HEMOGLOBIN 30.3 pg (27.0-33.0); MEAN CORPUSCULAR HGB CONC 33.9 g/dl (32.0-36.5); MEAN CORPUSCULAR VOLUME 89.5 fl (80.0-96.0); PLATELET COUNT, AUTOMATED 297 10^3/uL (150-450); RED BLOOD COUNT 4.68 10^6/uL (4.00-5.40); WHITE BLOOD COUNT 8.7 10^3/uL (4.0-10.0)
[2020-02-28 09:37] LABS: ALBUMIN 3.3 GM/DL (3.2-5.2); ALT/SGPT 45 U/L (12-78); BILIRUBIN,TOTAL 0.4 MG/DL (0.2-1.0); BLOOD UREA NITROGEN 11 MG/DL (7-18); CALCIUM LEVEL 9.2 MG/DL (8.8-10.2); CARBON DIOXIDE LEVEL 26 MEQ/L (21-32); CHLORIDE LEVEL 104 MEQ/L (98-107); CREATININE FOR GFR 0.65 MG/DL (0.55-1.30); GLOMERULAR FILTRATION RATE > 60.0 (>45); GLUCOSE, FASTING 195 MG/DL (70-100); MAGNESIUM LEVEL 1.9 MG/DL (1.8-2.4); POTASSIUM SERUM 3.9 MEQ/L (3.5-5.1); SODIUM LEVEL 139 MEQ/L (136-145); TOTAL PROTEIN 7.3 GM/DL (6.4-8.2); TROPONIN I 0.19 NG/ML (< 0.10)
[2020-02-28 12:00] VITALS: BP 144/76
--- NOTE | 2020-02-28 12:17 | CR ---
DATE OF CONSULTATION: 02/28/2020 REFERRING PHYSICIAN: Dr. Lugo INDICATION: Ventricular tachycardia. HISTORY OF PRESENT ILLNESS: Mrs. Buatista is known to me. She is a pleasant 59-year-old female who has a longstanding history of idiopathic ventricular tachycardia. Over the years, she has been on numerous antiarrhythmics, which ultimately turned to be unsuccessful in controlling her episodes. She initially was started on amiodarone, but it ultimately had to be discontinued because it triggered hyperthyroidism. She also was on flecainide that was not well tolerated due to CLIENT EXPERIENCE CONSULTANT side effects. She also was on sotalol, which was ineffective in preventing episodes of ventricular tachycardia and as of most recently she has been on mexiletine. The dose has been progressively increased to current 300 mg three times a day as the day prior to admission. In spite of it, the patient kept having more frequent episodes of ventricular tachycardia, and she ultimately called the office very emotional that she cannot tolerate the sensation of palpitations and waiting to potentially get shocked. Consequently, I instructed her to go to emergency room yesterday and she was admitted for further management. Since her last ICD interrogation on February 18, 2020, she had 19 episodes of ventricular tachycardia, five of which have been treated. On admission, she was taken off mexiletine and started on amiodarone IV. I discussed this issue with Dr. Medina. Unfortunately, even though she has a history of amiodarone induced hyperthyroidism, we are running out of options how to control her VT / V-fib and consequently as a temporizing measure I believe this is the only feasible solution. She almost completed the third face of the loading protocol. She still has about 11 hours to go. Unfortunately, she did have a single episode of nonsustained VT this morning around 06:00 a.m. that lasted eight beats. As all her prior episode, it was initiated by PVC. PAST MEDICAL HISTORY: 1. Ventricular tachycardia, as outlined above. She had over years several ablations by Dr. Medina, practice consultant from [facility] in [place]. She also was evaluated for CAD. She had initially cardiac catheterization in 2006, which did not reveal any coronary artery disease, and she has had repeated imaging for LV function, and she has consistently had preserved left ventricular systolic function. Her last echocardiogram was in this facility in August 2019 that revealed ejection fraction about 75%, normal right ventricle and no valvular disease. She does have [employer]onic dual-chamber defibrillator. 2. Type 2 diabetes. 3. Obesity. 4. Hypercholesterolemia. 5. History of hyperthyroidism due to amiodarone that was treated medically and eventually resolved with discontinuation of amiodarone. This occurred in 2011. SOCIAL HISTORY: The patient is . She lives with . She does not smoke and never did. There is no significant alcohol use. FAMILY HISTORY: Her father of cancer. There is no history of cardiac rhythmic problems in first-degree relatives. PAST SURGICAL HISTORY: Positive for ICD placement, section and reduction mammoplasty. OUTPATIENT MEDICATIONS: - insulin as directed by Dr. Salinas - mexiletine 300 mg three times a day - nadolol 60 mg daily - pravastatin 20 mg a day REVIEW OF SYSTEMS: She denies any recent changes in her condition. There has been no fever, chills, nausea, vomiting, diarrhea. No throat pain. No chest pain. No shortness of breath with her fairly sedentary lifestyle. No abdominal pain. No nausea. No vomiting. No bleeding problems. The rest as per HPI or otherwise negative. PHYSICAL EXAMINATION: Mrs. Bautista is a 59-year-old female who appears approximately her age. She is obese, pleasant, alert and oriented times three. Blood pressure 132/65, heart rate has been 50 beats per minute, almost invariably atrially paced. She is afebrile. Saturation 93 to 96% on room air. Weight is 87 kg. Jugular venous pressure is not high. Lungs are clear. Good air movement. Heart exam reveals somewhat muffled heart sounds corresponding to her obesity, but I do not appreciate any gallop, rub or murmur. There is an ICD in left subclavian pocket. Abdomen is obese but soft and nontender. No obvious hepatosplenomegaly. Extremities are free of edema. Peripheral pulses are palpable. Documented weight was 87 kg. LABORATORY: She has normal CBC, normal basic metabolic panel, normal liver function tests, TSH was 1.4. Troponin is mildly elevated 0.19, on admission, 0.16 last night and 0.19 this morning. CK, CK-MB were initially normal. ECG reveals atrial paced rhythm with right bundle branch block, QT interval is not prolonged. Chest x-ray is unremarkable. ASSESSMENT/PLAN: Mrs. Bautista is a 59-year-old female who has idiopathic ventricular tachycardia that frequently degenerates into ventricular fibrillation. She has structurally normal heart and does not have coronary artery disease. Over years, she had numerous ICD discharges, so far three unsuccessful ablations and tried numerous antiarrhythmics. Unfortunately, as of recently, there has been increasing frequency of ventricular tachycardia. Her last antiarrhythmic was mexiletine and I certainly cannot rule out that it acted as actually proarrhythmic agent. In any case, I think it is appropriate to use amiodarone as a temporizing measure. I am in communication with Dr. Medina in [place], and he is trying to arrange for electrophysiology consultation and hopefully ablation at the [facility] in [place]. Unfortunately, due to current COVID epidemic, the program has been limited and consequently it is probable that she will not be able to proceed with ablation within next month or two. For the short-term, we will continue her on amiodarone. She will finish the IV load, and I will continue 400 mg twice a day. If she does not have any additional arrhythmias today and overnight, we will tentatively let her go home tomorrow morning. If she has more arrhythmias, we will probably keep her longer in the hospital. I will continue nadolol, it is successful in slowing down her heart rate. I reprogrammed her ICD today and increase the resting heart rate to 55 beats per minute, even though the VT does not have appearance of torsades, I think that is probably beneficial if her heart rate is slightly faster. Unfortunately, her condition is tenuous. This is a very challenging case, but I am optimistic that with this new regimen we can stabilize her condition at least in the short-term. MAY
[2020-02-28 16:00] VITALS: BP 113/68
[2020-02-28 20:00] VITALS: BP 138/72
[2020-02-28] MEDS: LEVEMIR (INSULIN DETEMIR) 1 UNITS/0.01ML SC SCH (20:10)
[2020-02-28] MEDS: PRAVASTATIN 20 MG TAB PO SCH (20:11)
[2020-02-29] VITALS: BP 125/81
[2020-02-29 04:00] VITALS: BP 121/58
[2020-02-29] MEDS: HumaLOG INSULIN (NovoLOG) PER UNIT SC SCH (07:13)
[2020-02-29 08:00] VITALS: BP 133/61
[2020-02-29] MEDS: HEPARIN SOD (PORCINE) 5000 UNITS/ML VIAL (J1644 PER 1000UNITS) SC SCH (08:04)
[2020-02-29] MEDS: AMIODARONE 200 MG TAB (PACERONE) PO SCH (08:04)
[2020-02-29 08:05] VITALS: BP 133/61
[2020-02-29] MEDS: NADOLOL 20MG TABLET PO SCH (08:05)
--- NOTE | 2020-02-29 09:19 | ECGEPIP ---
[facility] Test Date: 2020-02-29 Pat Name: ELSI JOHNSON Department: Room: [place] [address] Gender: Female High [employer] Principal: : 1960 Requested By: Shaw Lira Order Number: [id number] Reading MD: Son Vargas Measurements Intervals [place] Rate: 54 P: 154 AK: 226 QRS: -9 QRSD: 135 T: -12 QT: 460 QTc: 440 Interpretive Statements Atrial-paced rhythm Incomplete right bundle branch block Nonspecific T wave abnormality No significant change when compared to prior tracing of 02/27/2020 Electronically Signed on 02-29-2020 9:19:29 EDT by Son Vargas
--- NOTE | 2020-02-29 09:28 | IPNPDOC ---
Subjective Date Seen The patient was seen on 02/29/20. Subjective Chief Complaint/HPI Patient had no incidence of palpitation or V. tach on the monitor last night General: Denies: ROS Unobtainable, Chills, Night Sweats, Fatigue, Malaise, Normal Appetite, Other Symptoms Eyes: Denies: Pain, Vision change, Conjunctivae inflammation, Eyelid inflammation, Redness, Other Pulmonary: Denies: Dyspnea, Cough, Pleuritic Chest Pain, Other Symptoms Cardiovascular: Denies: Chest Pain, Palpitations, Orthopnea, Paroxysmal Noc. Dyspnea, Edema, Lt Headedness, Other Symptoms Gastrointestinal: Denies: Nausea, Vomiting, Abdominal Pain, Diarrhea, Constipation, Melena, Hematochezia, Other Symptoms Endocrine: Denies: Polydipsia, Polyphagia, Polyuria, Heat Intolerance, Cold Intolerance, Other Endocrine Sx Musculoskeletal: Denies: Neck Pain, Back Pain, Shoulder Pain, Arm Pain, Hand Pain, Leg Pain, Foot Pain, Joint Pain, Muscle Pain, Spasms, Other Symptoms Neurological: Denies: Weakness, Numbness, Incoordination, Change in speech, Confusion, Seizures, Other Symptoms Objective Physical Examination ENT Exam: Positive: Atraumatic, Mucous membr. moist/pink Neck Exam: Positive: Supple, JVD Chest Exam: Positive: Clear to auscultation, Normal air movement Heart Exam: Positive: Rate Normal, Normal S1, Normal S2 Abdomen Exam: Positive: Normal bowel sounds Extremity Exam: Positive: Normal pulses Skin Exam: Positive: Nl turgor and temperature Neuro Exam: Positive: Strength at 5/5 X4 ext, Sensation Intact, Cranial Nerves 3-12 NL Assessment /Plan Problems (1) Ventricular tachycardia Status: Acute Problem Text: Patient on amiodarone was changed to by mouth on discharge and 400 mg by mouth twice a day No incidence of palpitation or V. tach last night see patient seems to be respo nding to amiodarone Will await Dr. Lira to follow patient and she can be discharged home on by mouth amiodarone and follow with him as an outpatient in one week Continue all other home meds except mexiletine (2) Defibrillator discharge Status: Acute Problem Text: Status post AICD AICD and Phenergan and and reprogrammed by cardiology Further recommendations per cardiology (3) CKD (chronic kidney disease) Status: Chronic Problem Text: Stable continue home meds (4) Hyperlipemia Status: Chronic Problem Text: Continue home meds (5) CAD (coronary artery disease) Status: Chronic Problem Text: Stable continue home meds (6) Diabetes mellitus Status: Chronic Problem Text: Fingerstick blood sugar 4 times a day before meals and at bedtime with coverage Continue home insulin dosage Plan/VTE VTE Prophylaxis Ordered?: Yes VS, I&O, 24H, Fishbone Vital Signs/I&O Vital Signs Date Time Temp Pulse Resp B/P (MAP) Pulse Ox O2 Delivery O2 Flow Rate FiO2 02/29/20 08:05 56 133/61 02/29/20 08:00 97.5 18 95 Room Air I&O- Last 24 Hours up to 6 AM 02/29/20 06:00 Intake Total 1706.5 ml Output Total 2550 ml Balance -843.5 ml Laboratory Data 24H LABS Laboratory Tests 2 02/28/20 11:36: Bedside Glucose (Misc Panel) 267H 02/28/20 17:12: Bedside Glucose (Misc Panel) 197H 02/28/20 19:45: Bedside Glucose (Misc Panel) 249H 02/29/20 06:46: Bedside Glucose (Misc Panel) 96 CHARLENE NUNEZ MD Feb 29, 2020 09:28
[2020-02-29] MEDS ORDERED: AMIO400T7 PO ×2 (10:55→12:16)
--- NOTE | 2020-02-29 11:01 | DS.PDOC ---
Discharge Summary General Date of Admission Feb 27, 2020 at 16:10 Date of Discharge 02/29/20 Discharge Summary PROCEDURES PERFORMED DURING STAY: None. ADMITTING DIAGNOSES: 1. Defibrillator discharge, V. tach. DISCHARGE DIAGNOSES: 1. Defibrillator discharge, ventricular tachycardia, hypertensive heart disease, hyperlipidemia, CK D, CAD, diabetes mellitus. COMPLICATIONS/CHIEF COMPLAINT: Defibrillator Discharge Palpitations. HISTORY OF PRESENT ILLNESS: This is a 59 years old white female with past medical history of V. tach status post AICD hypertensive heart disease, hyperlipidemia, chronic kidney disease, CAD status post ND, diabetes mellitus type 2 who was in usual state of health until yesterday when she started feeling palpitations followed by a AICD discharge and again she started feeling palpitations. She called her account resolution specialist and she was asked to come to Hospital admission for possible d ventricular tachycardia. Patient offers no other complaints such as chest pain, shortness of breath, nausea, vomiting, diarrhea. Patient was seen in [place] and all the workup has been done with undetermined etiology for her ventricular tachycardia, patient was supposed to be transferred to [facility] for further workup, but was canceled secondary to COVID pandemic.. HOSPITAL COURSE: Patient was admitted with the palpitation and frequent runs of ventricular tachycardia Patient was admitted for further observation to telemetry unit. Mexiletine was DC'd it could be a pro-arrthythmia Patient was started on amiodarone infusion as per orders Patient's defibrillator. I'll also was interrogated and reprogrammed by cardiology Patient had remained without symptoms and with no ventricular tachycardia since last night Discussed with Dr. Lira patient can be discharged home on by mouth amiodarone 400 mg by mouth twice a day Further follow with Dr. jacobson, in one week on all her current meds except mexiletine . DISCHARGE MEDICATIONS: Please see below. ALLERGIES: Please see below. PHYSICAL EXAMINATION ON DISCHARGE: VITAL SIGNS: Please see below. GENERAL: Within normal limits HEENT: PERRLA. Extraocular muscles intact NECK: Supple. Negative JVD, negative lymphadenopathy CARDIOVASCULAR EXAMINATION: S1, S2, regular RESPIRATORY EXAMINATION: Clear to A&P ABDOMINAL EXAMINATION: , Soft, nontender, bowel sound present, no organomegaly EXTREMITIES: No clubbing, cyanosis, edema SKIN: Normal NEUROLOGICAL EXAMINATION: Focal motor sensory deficit PSYCHIATRIC EXAMINATION: Normal LABORATORY DATA: Please see below. IMAGING: Not applicable PROGNOSIS: good ACTIVITY: As tolerated. DIET: As tolerated DISCHARGE PLAN: Follow Dr. Lira in one week DISPOSITION: . Home DISCHARGE INSTRUCTIONS: 1. As per discharge instructions. ITEMS TO FOLLOWUP ON ON OUTPATIENT: 1. Hollow with cardiology in 1 week. DISCHARGE CONDITION: Stable. TIME SPENT ON DISCHARGE: 25 minutes. Vital Signs/I&Os Vital Signs Date Time Temp Pulse Resp B/P (MAP) Pulse Ox O2 Delivery O2 Flow Rate FiO2 02/29/20 08:05 56 133/61 02/29/20 08:00 97.5 18 95 Room Air I&O- Last 24 Hours up to 6 AM 02/29/20 06:00 Intake Total 1706.5 ml Output Total 2550 ml Balance -843.5 ml Laboratory Data Labs 24H Laboratory Tests 2 02/28/20 11:36: Bedside Glucose (Misc Panel) 267H 02/28/20 17:12: Bedside Glucose (Misc Panel) 197H 02/28/20 19:45: Bedside Glucose (Misc Panel) 249H 02/29/20 06:46: Bedside Glucose (Misc Panel) 96 FSBS Laboratory Tests Test 02/28/20 11:36 02/28/20 17:12 02/28/20 19:45 02/29/20 06:46 Range/Units Bedside Glucose (Misc Panel) 267 197 249 96 80-115 MG/DL Discharge Medications Scheduled Amiodarone HCl (Amiodarone HCl) 400 Mg Tablet, 400 MG PO BID Insulin Aspart (Novolog Flexpen) 100 Unit/Ml Inj, 1 DOSE SC BID, (Reported) PER SLIDING SCALE, TESTS BS IN MORNING AND AT BEDTIME Insulin Aspart (Novolog Flexpen) 100 Unit/1 Ml Insuln.pen, 20 UNITS SC BID, (Reported) BEFORE LUNCH AND DINNER Insulin Glargine (Lantus) 1 Units/0.01 Ml Susp, 50 UNITS SC QHS, (Reported) Nadolol (Nadolol) 40 Mg Tablet, 20 MG PO DAILY, (Reported) Nadolol (Nadolol) 40 Mg Tablet, 40 MG PO QHS, (Reported) Pravastatin Sodium (Pravastatin Sodium) 20 Mg Tab, 20 MG PO QHS, (Reported) Scheduled PRN Acetaminophen (Acetaminophen) 325 Mg Tablet, 650 MG PO Q4H PRN for PAIN / FEVER, (Reported) Allergies Uncoded Allergies: muscle relaxers (Allergy, Unknown, 02/27/20) CHARLENE NUNEZ MD Feb 29, 2020 11:01
--- NOTE | 2020-02-29 11:29 | IPN ---
DATE: 02/29/2020 Mrs. Bautista has been feeling better. She has not had any palpitations since yesterday and the review of telemetry monitoring reveals no ventricular ectopy. Vital signs: Blood pressure 163/61, heart rate has been almost consistently in 55 range and atrially paced. She is afebrile. Weight has been recorded 79.9 kg today. She is alert, oriented, appropriate. Her lungs are clear. Heart exam reveals regular rhythm. No gallop, rub or murmur is appreciated. LABORATORY: Basic metabolic panel is normal. This is from yesterday, so no blood work was drawn this morning. ECG is unchanged revealing atrial pacing and right bundle branch block. ASSESSMENT/PLAN: Mrs. Bautista is a 59-year-old lady who has idiopathic ventricular tachycardia. At this point, she has had trouble with this condition for many years and over years tried numerous antiarrhythmics without success or with side effects. Currently, we decided to start her on amiodarone in cooperation with her atomizer assembler, Dr. Medina in [place]. 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 She will be discharged on combination of nadolol and amiodarone 400 twice a day. I will tentatively see her in the office in about 10 days. I will inform Dr. Medina about this clinical evolution.
== END 2020-02-29 12:52 | disposition home or self-care (01) | DRG 201 ==
LOC: EDBD 14:37 → M ED 16:00 → M ED INP 16:10 → ENRESERVDT 16:37 → ENRESERVTM 16:37 → M PCU 17:13
PROVIDERS: ADMIT Internal Medicine; ATTEND Internal Medicine
DX: I47.2 Ventricular tachycardia (principal); I12.9 Hypertensive chronic kidney disease with stage 1 through stage 4 chronic kidney disease, or unspecified chronic kidney disease; E78.5 Hyperlipidemia, unspecified; I25.10 Atherosclerotic heart disease of native coronary artery without angina pectoris; E11.9 Type 2 diabetes mellitus without complications; N18.9 Chronic kidney disease, unspecified; I25.2 Old myocardial infarction; Z79.4 Long term (current) use of insulin; Z79.899 Other long term (current) drug therapy; Z88.8 Allergy status to other drugs, medicaments and biological substances; E66.9 Obesity, unspecified; I45.10 Unspecified right bundle-branch block

== ENCOUNTER → 2021-04-05 | Outpatient (REF) | payer OTHER ==
[~2021-04-05] MED LIST changes: -ACET-908 PO; +ACET-910 PO; +AMIO400T7 PO; -ASPI81TA85 PO; +ASPI81TA86 PO; -HM P99TA PO; +INSUH10VL SC; -LISI-542 PO; +LISI-898 PO; +MEXI200C PO; +NADO40TA PO; +POTA99TA14 PO; -RANO500T PO; +RANO500T2 PO
[2021-04-05 13:28] LABS: ALBUMIN 3.4 GM/DL (3.2-5.2); ALT/SGPT 21 U/L (12-78); BILIRUBIN,TOTAL 0.4 MG/DL (0.2-1.0); BLOOD UREA NITROGEN 9 MG/DL (7-18); CALCIUM LEVEL 9.8 MG/DL (8.8-10.2); CARBON DIOXIDE LEVEL 29 MEQ/L (21-32); CHLORIDE LEVEL 108 MEQ/L (98-107); CHOLESTEROL LEVEL 162 MG/DL (<200); CHOLESTEROL RISK RATIO 3.521 (<5); FREE T4 1.03 NG/DL (0.76-1.46); GLOMERULAR FILTRATION RATE > 60.0 (>45); GLUCOSE, FASTING 138 MG/DL (70-100); HDL CHOLESTEROL 46 MG/DL (>40); LDL CHOLESTEROL 87 MG/DL (<100); NON-HDL-C 116 MG/DL; POTASSIUM SERUM 4.8 MEQ/L (3.5-5.1); SODIUM LEVEL 141 MEQ/L (136-145); TOTAL PROTEIN 6.8 GM/DL (6.4-8.2); TRIGLYCERIDES LEVEL 145 MG/DL (<150)
[2021-04-05 13:38] LABS: MALB URINE SIEMENS 30.5 MG/L; MAU/CREAT RATIO 25.6 MCG/MG (0.0-30.0)
[2021-04-05 13:58] LABS: HEMOGLOBIN A1c 8.1 %
== END ==
LOC: M LABDRWAD 12:17
PROVIDERS: ATTEND Nurse Practitioner Family
DX: E78.2 Mixed hyperlipidemia (principal); I10 Essential (primary) hypertension; E11.3313 Type 2 diabetes mellitus with moderate nonproliferative diabetic retinopathy with macular edema, bilateral

== ENCOUNTER → 2021-07-18 | Outpatient (REF) | payer OTHER ==
[~2021-07-18] MED LIST changes: +FLEC100T27 PO; -FLEC10TA PO
[2021-07-18 13:28] LABS: HEMOGLOBIN A1c 7.8 %
== END ==
LOC: M LABDRWAD 12:21
PROVIDERS: ATTEND Nurse Practitioner Family
DX: E11.3313 Type 2 diabetes mellitus with moderate nonproliferative diabetic retinopathy with macular edema, bilateral (principal)

== ENCOUNTER → 2021-11-15 | Outpatient (REF) | payer OTHER ==
[~2021-11-15] MED LIST changes: -MAGN400T3 PO; +MAGN400T33 PO
[2021-11-15 13:42] LABS: HEMOGLOBIN A1c 8.3 %
== END ==
LOC: M LABDRWAD 12:35
PROVIDERS: ATTEND Family Medicine
DX: E11.3313 Type 2 diabetes mellitus with moderate nonproliferative diabetic retinopathy with macular edema, bilateral (principal)

== ENCOUNTER → 2022-02-10 | Outpatient (REF) | payer OTHER ==
[~2022-02-10] MED LIST changes: -LISI-898 PO; +LISI5TAB11 PO
[2022-02-10 13:18] LABS: HEMOGLOBIN A1c 8.6 %
== END ==
LOC: M LABDRWAD 12:28 → M LAB REF 12:28
PROVIDERS: ATTEND Nurse Practitioner Family
DX: E11.3313 Type 2 diabetes mellitus with moderate nonproliferative diabetic retinopathy with macular edema, bilateral (principal)

== ENCOUNTER → 2022-05-15 | Outpatient (CLI) | payer OTHER ==
[2022-05-15 14:36] LABS: ALBUMIN 3.6 GM/DL (3.2-5.2); ALT/SGPT 19 U/L (12-78); BILIRUBIN,TOTAL 0.3 MG/DL (0.2-1.0); BLOOD UREA NITROGEN 11 MG/DL (7-18); CALCIUM LEVEL 10.1 MG/DL (8.8-10.2); CARBON DIOXIDE LEVEL 27 MEQ/L (21-32); CHLORIDE LEVEL 106 MEQ/L (98-107); CHOLESTEROL LEVEL 190 MG/DL (<200); CHOLESTEROL RISK RATIO 4.634 (<5); CREATININE FOR GFR 0.67 MG/DL (0.55-1.30); GLOMERULAR FILTRATION RATE > 60.0 (>45); GLUCOSE, FASTING 157 MG/DL (70-100); HDL CHOLESTEROL 41 MG/DL (>40); LDL CHOLESTEROL 114 MG/DL (<100); NON-HDL-C 149 MG/DL; POTASSIUM SERUM 4.4 MEQ/L (3.5-5.1); SODIUM LEVEL 139 MEQ/L (136-145); TOTAL PROTEIN 7.2 GM/DL (6.4-8.2); TRIGLYCERIDES LEVEL 174 MG/DL (<150)
[2022-05-15 15:05] LABS: HEMOGLOBIN A1c 8.6 %
[2022-05-15 15:43] LABS: MALB URINE SIEMENS 18.2 MG/L; MAU/CREAT RATIO 13.2 MCG/MG (0.0-30.0)
== END ==
LOC: M ADAMS 08:55
PROVIDERS: ATTEND Nurse Practitioner Family
DX: E11.3313 Type 2 diabetes mellitus with moderate nonproliferative diabetic retinopathy with macular edema, bilateral (principal); I10 Essential (primary) hypertension; E78.2 Mixed hyperlipidemia

== ENCOUNTER → 2022-07-06 | Outpatient (CLI) | payer OTHER ==
[~2022-07-06] MED LIST changes: +FISH10005 PO; -FISH7.5C PO
[2022-07-07 12:46] LABS: BASO # 0.1 10^3/uL (0.0-0.2); BASO % 0.7 % (0.0-1.0); EOS # 0.2 10^3/uL (0.0-0.5); EOS % 2.1 % (0.0-3.0); HEMOGLOBIN 12.5 g/dl (12.0-15.5); LYMPH # 3.3 10^3/uL (1.5-5.0); LYMPH % 37.7 % (24.0-44.0); MEAN CORPUSCULAR HEMOGLOBIN 30.3 pg (27.0-33.0); MEAN CORPUSCULAR HGB CONC 32.9 g/dl (32.0-36.5); MEAN CORPUSCULAR VOLUME 92.2 fl (80.0-96.0); MONO # 0.8 10^3/uL (0.0-0.8); MONO % 9.4 % (2.0-8.0); NEUTROPHILS # 4.3 10^3/uL (1.5-8.5); NEUTROPHILS % 49.9 % (36.0-66.0); PLATELET COUNT, AUTOMATED 287 10^3/uL (150-450); RED BLOOD COUNT 4.12 10^6/uL (4.00-5.40); WHITE BLOOD COUNT 8.7 10^3/uL (4.0-10.0)
[2022-07-07 13:08] LABS: BLOOD UREA NITROGEN 14 MG/DL (7-18); CALCIUM LEVEL 9.9 MG/DL (8.8-10.2); CARBON DIOXIDE LEVEL 29 MEQ/L (21-32); CHLORIDE LEVEL 108 MEQ/L (98-107); CREATININE FOR GFR 0.69 MG/DL (0.55-1.30); GLOMERULAR FILTRATION RATE > 60.0 (>45); GLUCOSE, FASTING 144 MG/DL (70-100); POTASSIUM SERUM 4.4 MEQ/L (3.5-5.1); SODIUM LEVEL 141 MEQ/L (136-145)
== END ==
LOC: M ADAMS 15:45
PROVIDERS: ATTEND Internal Medicine Cardiovascular Disease
DX: I47.2 Ventricular tachycardia (principal)

== ENCOUNTER → 2022-08-16 | Outpatient (CLI) | payer OTHER ==
[2022-08-16 14:20] LABS: HEMOGLOBIN A1c 8.6 %
== END ==
LOC: M LABDRWAD 08:33
PROVIDERS: ATTEND Nurse Practitioner Family
DX: E11.3313 Type 2 diabetes mellitus with moderate nonproliferative diabetic retinopathy with macular edema, bilateral (principal)

== ENCOUNTER → 2022-12-06 | Outpatient (REF) | payer OTHER ==
[~2022-12-06] MED LIST changes: +CLOP75TA99 PO; -PLAV1TAB2 PO
[2022-12-06 13:54] LABS: HEMOGLOBIN A1c 8.2 % (4.0-6.0)
== END ==
LOC: M LABDRWAD 12:44
PROVIDERS: ATTEND Registered Nurse
DX: E11.3313 Type 2 diabetes mellitus with moderate nonproliferative diabetic retinopathy with macular edema, bilateral (principal)

== ENCOUNTER → 2022-12-06 | Outpatient (REF) | payer OTHER ==
[2022-12-06 13:24] LABS: HEMATOCRIT 38.6 % (36.0-47.0); HEMOGLOBIN 12.6 g/dl (12.0-15.5); MEAN CORPUSCULAR HEMOGLOBIN 30.7 pg (27.0-33.0); MEAN CORPUSCULAR HGB CONC 32.6 g/dl (32.0-36.5); MEAN CORPUSCULAR VOLUME 93.9 fl (80.0-96.0); PLATELET COUNT, AUTOMATED 298 10^3/uL (150-450); RED BLOOD COUNT 4.11 10^6/uL (4.00-5.40); WHITE BLOOD COUNT 7.7 10^3/uL (4.0-10.0)
[2022-12-06 13:54] LABS: THYROID STIMULATING HORMONE 0.668 uIU/ML (0.55-4.78)
[2022-12-06 13:55] LABS: BLOOD UREA NITROGEN 10 MG/DL (9-23); CALCIUM LEVEL 9.1 MG/DL (8.3-10.6); CARBON DIOXIDE LEVEL 29 MMOL/L (20-31); CHLORIDE LEVEL 105 MMOL/L (98-107); CREATININE FOR GFR 0.64 MG/DL (0.55-1.30); GLOMERULAR FILTRATION RATE > 60.0 (>45); GLUCOSE, FASTING 150 MG/DL (74-106); POTASSIUM SERUM 4.5 MMOL/L (3.5-5.1); SODIUM LEVEL 141 MMOL/L (136-145)
== END ==
LOC: M LABDRWAD 12:46
PROVIDERS: ATTEND Nurse Practitioner Family
DX: R53.83 Other fatigue (principal); E78.5 Hyperlipidemia, unspecified; I10 Essential (primary) hypertension; I47.20 Ventricular tachycardia, unspecified

== ENCOUNTER → 2023-03-09 | Outpatient (CLI) | payer OTHER ==
[2023-03-09 13:59] LABS: ALBUMIN 3.2 G/DL (3.2-5.2); ALKALINE PHOSPHATASE 61 U/L (46-116); ALT/SGPT 18 U/L (7.0-40); AST/SGOT 15 U/L (<34); BILIRUBIN,TOTAL 0.3 MG/DL (0.3-1.2); BLOOD UREA NITROGEN 15 MG/DL (9-23); CALCIUM LEVEL 9.4 MG/DL (8.3-10.6); CARBON DIOXIDE LEVEL 27 MMOL/L (20-31); CHLORIDE LEVEL 106 MMOL/L (98-107); CHOLESTEROL LEVEL 142 MG/DL (<200); CHOLESTEROL RISK RATIO 3.06 (<5); CREATININE FOR GFR 0.61 MG/DL (0.55-1.30); GLOMERULAR FILTRATION RATE > 60.0 (>45); GLUCOSE, FASTING 198 MG/DL (74-106); HDL CHOLESTEROL 46.4 MG/DL (>40); NON-HDL-C 95.6 MG/DL; POTASSIUM SERUM 4.8 MMOL/L (3.5-5.1); SODIUM LEVEL 140 MMOL/L (136-145); TOTAL PROTEIN 6.4 G/DL (5.7-8.2); TRIGLYCERIDES LEVEL 128 MG/DL (<150)
[2023-03-09 16:22] LABS: HEMOGLOBIN A1c 8.3 % (4.0-6.0)
== END ==
LOC: M LABDRWAD 08:15
PROVIDERS: ATTEND Registered Nurse
DX: E11.3313 Type 2 diabetes mellitus with moderate nonproliferative diabetic retinopathy with macular edema, bilateral (principal); I10 Essential (primary) hypertension

== ENCOUNTER → 2023-06-08 | Outpatient (REF) | payer OTHER ==
[~2023-06-08] MED LIST changes: +CYAN-1 PO; -CYAN100050 PO
[2023-06-08 14:05] LABS: HEMOGLOBIN A1c 8.4 % (4.0-6.0)
== END ==
LOC: M LABDRWAD 12:16
PROVIDERS: ATTEND Nurse Practitioner Family
DX: E11.3313 Type 2 diabetes mellitus with moderate nonproliferative diabetic retinopathy with macular edema, bilateral (principal)

== ENCOUNTER 2023-12-20 09:40 | Emergency (ER) | payer MEDICARE, OTHER ==
[~2023-12-20] VITALS: Ht 157.5 cm; Wt 97.8 kg
[~2023-12-20 09:40] MED LIST changes: +AMIO400T2 PO; -AMIO400T7 PO; -NADO40TA PO; +NADO40TA6 PO
[2023-12-20 11:01] LABS: BASO # 0.1 10^3/uL (0.0-0.2); BASO % 0.7 % (0.0-1.0); EOS # 0.2 10^3/uL (0.0-0.5); EOS % 1.6 % (0.0-3.0); HEMATOCRIT 40.8 % (36.0-47.0); HEMOGLOBIN 13.7 g/dl (12.0-15.5); LYMPH # 2.5 10^3/uL (1.5-5.0); MEAN CORPUSCULAR HEMOGLOBIN 30.9 pg (27.0-33.0); MEAN CORPUSCULAR HGB CONC 33.6 g/dl (32.0-36.5); MEAN CORPUSCULAR VOLUME 91.9 fl (80.0-96.0); MONO # 0.8 10^3/uL (0.0-0.8); MONO % 7.3 % (2.0-8.0); NEUTROPHILS # 6.9 10^3/uL (1.5-8.5); NEUTROPHILS % 65.7 % (36.0-66.0); PLATELET COUNT, AUTOMATED 280 10^3/uL (150-450); RED BLOOD COUNT 4.44 10^6/uL (4.00-5.40); WHITE BLOOD COUNT 10.4 10^3/uL (4.0-10.0)
[2023-12-20 11:06] LABS: BLOOD UREA NITROGEN 10 MG/DL (9-23); CALCIUM LEVEL 9.3 MG/DL (8.3-10.6); CARBON DIOXIDE LEVEL 27 MMOL/L (20-31); CHLORIDE LEVEL 107 MMOL/L (98-107); CK-MB VALUE MASS 3.6 NG/ML (<3.6); CREATININE FOR GFR 0.54 MG/DL (0.55-1.30); GLOMERULAR FILTRATION RATE > 60.0 (>45); GLUCOSE, FASTING 171 MG/DL (74-106); MAGNESIUM LEVEL 1.6 MG/DL (1.8-2.4); POTASSIUM SERUM 4.3 MMOL/L (3.5-5.1); SODIUM LEVEL 138 MMOL/L (136-145)
[2023-12-20 11:08] LABS: FREE T4 0.95 NG/DL (0.89-1.76); THYROID STIMULATING HORMONE 2.746 uIU/ML (0.55-4.78)
[2023-12-20 11:10] LABS: CPK CREATINE PHOSPHOKINASE 122 U/L (34-145); MB/CK RELATIVE INDEX 2.95 (< OR =4)
[2023-12-20] MEDS ORDERED: MAG SULF 1GM/100ML (MAG RUN) 1 GM in IV 1 EA IV ONE (11:20)
[2023-12-20] MEDS ORDERED: [UNRECOGNIZED DRUG - CODE] PO (11:58)
[2023-12-20] MEDS ORDERED: GLIM2TAB29 PO (11:58)
[2023-12-20] MEDS ORDERED: PROP40TA62 PO (11:58)
[2023-12-20 15:45] VITALS: BP 153/72
[2023-12-20 15:46] VITALS: TEMP 98.7; O2SAT 96
== END 2023-12-20 15:53 | disposition short-term general hospital (02) ==
LOC: M ED 09:40 → EDBD 09:40 → M ED 15:53
DX: T82.897A Other specified complication of cardiac prosthetic devices, implants and grafts, initial encounter (principal); I47.20 Ventricular tachycardia, unspecified; E83.42 Hypomagnesemia; I45.10 Unspecified right bundle-branch block; E11.9 Type 2 diabetes mellitus without complications; K21.9 Gastro-esophageal reflux disease without esophagitis; E78.5 Hyperlipidemia, unspecified; Z79.4 Long term (current) use of insulin; Z79.899 Other long term (current) drug therapy
CPT/HCPCS: 71045; 80048; 82550; 82553; 83735; 84439; 84443; 84484; 85025; 87635; 93005; 93041; 94760; 96365; 96366; 99285; J3475

== ENCOUNTER → 2024-02-18 | Outpatient (REF) | payer MEDICARE ==
[~2024-02-18] MED LIST changes: +GLIM2TAB29 PO; +PROP40TA62 PO; +[UNRECOGNIZED DRUG - CODE] PO
[2024-02-18 14:22] LABS: HEMOGLOBIN A1c 8.5 % (4.0-6.0)
[2024-02-18 14:37] LABS: ALBUMIN 3.6 G/DL (3.2-5.2); ALKALINE PHOSPHATASE 67 U/L (46-116); ALT/SGPT 35 U/L (7.0-40); AST/SGOT 16 U/L (<34); BILIRUBIN,TOTAL 0.3 MG/DL (0.3-1.2); BLOOD UREA NITROGEN 11 MG/DL (9-23); CALCIUM LEVEL 9.2 MG/DL (8.3-10.6); CARBON DIOXIDE LEVEL 29 MMOL/L (20-31); CHLORIDE LEVEL 108 MMOL/L (98-107); CREATININE FOR GFR 0.64 MG/DL (0.55-1.30); GLOMERULAR FILTRATION RATE > 60.0 (>45); GLUCOSE, FASTING 253 MG/DL (74-106); POTASSIUM SERUM 4.2 MMOL/L (3.5-5.1); SODIUM LEVEL 137 MMOL/L (136-145); TOTAL PROTEIN 6.8 G/DL (5.7-8.2)
== END ==
LOC: M LABDRWAD 13:04
PROVIDERS: ATTEND Registered Nurse
DX: E11.3313 Type 2 diabetes mellitus with moderate nonproliferative diabetic retinopathy with macular edema, bilateral (principal)

== ENCOUNTER → 2024-06-02 | Outpatient (CLI) | payer MEDICARE ==
[~2024-06-02] MED LIST changes: -CRAN400C PO; +CRANBERRY400 MG PO
[2024-06-02 10:54] LABS: BASO % 0.6 % (0.0-1.0); EOS # 0.1 10^3/uL (0.0-0.5); EOS % 1.7 % (0.0-3.0); HEMOGLOBIN 13.8 g/dl (12.0-15.5); LYMPH # 3.2 10^3/uL (1.5-5.0); LYMPH % 44.1 % (24.0-44.0); MEAN CORPUSCULAR HGB CONC 33.7 g/dl (32.0-36.5); MEAN CORPUSCULAR VOLUME 95.1 fl (80.0-96.0); MONO # 0.6 10^3/uL (0.0-0.8); MONO % 8.1 % (2.0-8.0); NEUTROPHILS # 3.2 10^3/uL (1.5-8.5); NEUTROPHILS % 45.2 % (36.0-66.0); PLATELET COUNT, AUTOMATED 266 10^3/uL (150-450); RED BLOOD COUNT 4.31 10^6/uL (4.00-5.40); WHITE BLOOD COUNT 7.2 10^3/uL (4.0-10.0)
[2024-06-02 11:30] LABS: ALBUMIN 3.6 G/DL (3.2-5.2); ALKALINE PHOSPHATASE 71 U/L (46-116); ALT/SGPT 27 U/L (7.0-40); AST/SGOT 18 U/L (<34); BILIRUBIN,TOTAL 0.4 MG/DL (0.3-1.2); BLOOD UREA NITROGEN 11 MG/DL (9-23); CALCIUM LEVEL 9.5 MG/DL (8.3-10.6); CARBON DIOXIDE LEVEL 27 MMOL/L (20-31); CHLORIDE LEVEL 107 MMOL/L (98-107); CHOLESTEROL LEVEL 166 MG/DL (<200); CHOLESTEROL RISK RATIO 4.12 (<5); CREATININE FOR GFR 0.66 MG/DL (0.55-1.30); GLOMERULAR FILTRATION RATE > 60.0 (>45); GLUCOSE, FASTING 157 MG/DL (74-106); HDL CHOLESTEROL 40.2 MG/DL (>40); LDL CHOLESTEROL 93.8 MG/DL (<100); NON-HDL-C 125.8 MG/DL; POTASSIUM SERUM 4.3 MMOL/L (3.5-5.1); SODIUM LEVEL 141 MMOL/L (136-145); TOTAL PROTEIN 6.8 G/DL (5.7-8.2); TRIGLYCERIDES LEVEL 160 MG/DL (<150)
[2024-06-02 12:05] LABS: HEMOGLOBIN A1c 8.1 % (4.0-6.0)
== END ==
LOC: M LAB 09:56
PROVIDERS: ATTEND Registered Nurse
DX: E11.3313 Type 2 diabetes mellitus with moderate nonproliferative diabetic retinopathy with macular edema, bilateral (principal); I10 Essential (primary) hypertension; E78.2 Mixed hyperlipidemia

== ENCOUNTER → 2024-09-03 | Outpatient (REF) | payer MEDICARE ==
[2024-09-03 13:53] LABS: BASO # 0.1 10^3/uL (0.0-0.2); BASO % 0.7 % (0.0-1.0); EOS # 0.2 10^3/uL (0.0-0.5); EOS % 2.7 % (0.0-3.0); HEMATOCRIT 39.6 % (36.0-47.0); HEMOGLOBIN 12.8 g/dl (12.0-15.5); LYMPH # 2.9 10^3/uL (1.5-5.0); LYMPH % 43.8 % (24.0-44.0); MEAN CORPUSCULAR HEMOGLOBIN 30.5 pg (27.0-33.0); MEAN CORPUSCULAR HGB CONC 32.3 g/dl (32.0-36.5); MEAN CORPUSCULAR VOLUME 94.5 fl (80.0-96.0); MONO # 0.6 10^3/uL (0.0-0.8); MONO % 8.2 % (2.0-8.0); NEUTROPHILS % 44.5 % (36.0-66.0); PLATELET COUNT, AUTOMATED 252 10^3/uL (150-450); RED BLOOD COUNT 4.19 10^6/uL (4.00-5.40); WHITE BLOOD COUNT 6.7 10^3/uL (4.0-10.0)
[2024-09-03 13:56] LABS: ALBUMIN 3.3 G/DL (3.2-5.2); ALKALINE PHOSPHATASE 66 U/L (46-116); ALT/SGPT 35 U/L (7.0-40); AST/SGOT 25 U/L (<34); BILIRUBIN,TOTAL 0.4 MG/DL (0.3-1.2); BLOOD UREA NITROGEN 10 MG/DL (9-23); CALCIUM LEVEL 9.7 MG/DL (8.3-10.6); CARBON DIOXIDE LEVEL 29 MMOL/L (20-31); CHLORIDE LEVEL 107 MMOL/L (98-107); CREATININE FOR GFR 0.67 MG/DL (0.55-1.30); GLOMERULAR FILTRATION RATE > 60.0 (>45); GLUCOSE, FASTING 164 MG/DL (74-106); POTASSIUM SERUM 4.3 MMOL/L (3.5-5.1); SODIUM LEVEL 140 MMOL/L (136-145); TOTAL PROTEIN 6.7 G/DL (5.7-8.2)
[2024-09-03 14:08] LABS: HEMOGLOBIN A1c 8.5 % (4.0-6.0)
== END ==
LOC: M LABDRWAD 13:21
PROVIDERS: ATTEND Registered Nurse
DX: E11.3313 Type 2 diabetes mellitus with moderate nonproliferative diabetic retinopathy with macular edema, bilateral (principal); I10 Essential (primary) hypertension

== ENCOUNTER → 2024-12-05 | Outpatient (REF) | payer MEDICARE ==
[~2024-12-05] MED LIST changes: +NADO40TA40 PO; -NADO40TA6 PO
[2024-12-05 14:38] LABS: ALBUMIN 3.6 G/DL (3.2-5.2); ALKALINE PHOSPHATASE 68 U/L (35-104); ALT/SGPT 32 U/L (7.0-40); AST/SGOT 22 U/L (<34); BILIRUBIN,TOTAL 0.3 MG/DL (0.3-1.2); BLOOD UREA NITROGEN 8 MG/DL (9-23); CALCIUM LEVEL 9.4 MG/DL (8.3-10.6); CARBON DIOXIDE LEVEL 30 MMOL/L (20-31); CHLORIDE LEVEL 108 MMOL/L (98-107); CHOLESTEROL LEVEL 143 MG/DL (<200); CHOLESTEROL RISK RATIO 3.24 (<5); CREATININE FOR GFR 0.71 MG/DL (0.55-1.30); GLOMERULAR FILTRATION RATE > 60.0 (>45); GLUCOSE, FASTING 126 MG/DL (74-106); HDL CHOLESTEROL 44.1 MG/DL (>40); LDL CHOLESTEROL 69.3 MG/DL (<100); NON-HDL-C 98.9 MG/DL; POTASSIUM SERUM 4.5 MMOL/L (3.5-5.1); SODIUM LEVEL 142 MMOL/L (136-145); TOTAL PROTEIN 6.9 G/DL (5.7-8.2); TRIGLYCERIDES LEVEL 148 MG/DL (<150)
[2024-12-05 14:49] LABS: HEMOGLOBIN A1c 9.3 % (4.0-6.0)
== END ==
LOC: M LABDRWAD 12:48
PROVIDERS: ATTEND Registered Nurse
DX: E78.2 Mixed hyperlipidemia (principal); E11.3313 Type 2 diabetes mellitus with moderate nonproliferative diabetic retinopathy with macular edema, bilateral

== ENCOUNTER → 2025-07-16 | Outpatient (CLI) | payer MEDICARE ==
[~2025-07-16] MED LIST changes: -PRAV20TA2 PO; +PRAV20TA78 PO
[2025-07-16 14:28] LABS: ALT/SGPT 24 U/L (7.0-40); AST/SGOT 23 U/L (<34); CALCIUM LEVEL 9.0 MG/DL (8.3-10.6); CARBON DIOXIDE LEVEL 30 MMOL/L (20-31); CHLORIDE LEVEL 105 MMOL/L (98-107); CHOLESTEROL LEVEL 156 MG/DL (<200); CHOLESTEROL RISK RATIO 3.21 (<5); CREATININE FOR GFR 0.71 MG/DL (0.55-1.30); GLOMERULAR FILTRATION RATE > 90.0 (>45); LDL CHOLESTEROL 79.1 MG/DL (<100); NON-HDL-C 107.5 MG/DL; POTASSIUM SERUM 4.1 MMOL/L (3.5-5.1); SODIUM LEVEL 144 MMOL/L (136-145); TRIGLYCERIDES LEVEL 142 MG/DL (<150)
[2025-07-16 14:45] LABS: CREATININE, URINE 174.9 MG/DL; MALB URINE SIEMENS 10.0 MG/L; MAU/CREAT RATIO 5.7 MCG/MG (0.0-30.0)
[2025-07-16 16:40] LABS: ESTIMATED AVERAGE GLUCOSE 237.0 MG/DL (60-110)
== END ==
LOC: M LABDRWAD 10:07
PROVIDERS: ATTEND Registered Nurse
DX: E11.3313 Type 2 diabetes mellitus with moderate nonproliferative diabetic retinopathy with macular edema, bilateral (principal); E78.2 Mixed hyperlipidemia

== ENCOUNTER → 2025-10-29 | Outpatient (REF) | payer MEDICARE ==
[~2025-10-29] MED LIST changes: -FISH10005 PO; +FISH1CAP38 PO
[2025-10-29 13:59] LABS: ESTIMATED AVERAGE GLUCOSE 229.0 MG/DL (60-110)
== END ==
LOC: M LABDRWAD 13:10
PROVIDERS: ATTEND Nurse Practitioner Family
DX: E11.3313 Type 2 diabetes mellitus with moderate nonproliferative diabetic retinopathy with macular edema, bilateral (principal)